=== PATIENT | female | born 1985 | race Caucasian/White ===

== ENCOUNTER 2018-04-01 02:26 | Emergency (ER) | payer MEDICAID, SELFPAY ==
[2018-04-01 02:36] VITALS: BP 107/78; PULSE 100; RESP 16; TEMP 37.3; O2SAT 96
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
[2018-04-01] MEDS: Acetaminophen 500 MG TAB 1000 MG PO (03:55)
[2018-04-01 05:10] VITALS: BP 94/67; PULSE 78; RESP 16; O2SAT 93
== END 2018-04-01 05:25 | disposition home or self-care (01) ==
PROVIDERS: Emergency Provider Emergency Medicine; PCP Family Medicine
DX: S10.91XA Abrasion of unspecified part of neck, initial encounter (principal); S90.811A Abrasion, right foot, initial encounter; S30.810A Abrasion of lower back and pelvis, initial encounter; R51 Headache; R07.81 Pleurodynia; M25.551 Pain in right hip; Y04.8XXA Assault by other bodily force, initial encounter
CPT/HCPCS: 99285; 70450; 71046; 72170; 99284

== ENCOUNTER 2019-04-04 01:08 | Outpatient (CLI) | payer MEDICAID, SELFPAY ==
--- NOTE | 2019-04-04 08:30 | DI.MRI_ITS ---
EXAM: MR BRAIN WO CLINICAL HISTORY: VISUAL CHANGES, H53.9. TECHNIQUE: Multiplanar multisequence MRI was performed. COMPARISON: No exams were available for comparison FINDINGS: MR of the brain was performed according to the usual protocol. Ventricular system is normal in appea constanza. No signal abnormality identified in the brain. The orbital and temporal bone structures appe ar intact. There is unremarkable appearance of the pituitary. There is normal flow void in the circ [id number] vasculature. Diffusion-weighted imaging shows no evidence of infarction. Susceptibilit y weighted imaging shows no evidence of hemorrhage. IMPRESSION: Negative brain MRI.
== END 2019-04-04 01:28 ==
PROVIDERS: PCP Family Medicine; Visit Provider Family Medicine
DX: H53.9 Unspecified visual disturbance (principal)
CPT/HCPCS: 70551

== ENCOUNTER 2020-01-12 02:16 | Outpatient (CLI) | payer MEDICAID, SELFPAY | END 2020-01-12 02:36 | PROVIDERS: PCP Family Medicine; Visit Provider Family Medicine | DX: R55 Syncope and collapse (principal) | CPT/HCPCS: 93225 ==

== ENCOUNTER 2020-01-12 02:16 | Outpatient (CLI) | payer MEDICAID, SELFPAY ==
--- NOTE | 2020-01-12 13:15 | RT.EKG_ITS ---
APPROVED REPORT Exam: Resting ECG Patient Location: O HR:64 bpm ECG Measurements Heart Rate 64 AXIS NE 141 P 81 QRSd 77 QRS 73 QT 398 T 69 QTc 410 <Conclusion> Sinus rhythm...normal P axis, V-rate 60- 99 Right atrial enlargement...P>0.25mV 2 lds or<-0.24mV aVR/aVL
== END 2020-01-12 02:36 ==
PROVIDERS: PCP Family Medicine; Visit Provider Family Medicine
DX: R55 Syncope and collapse (principal)
CPT/HCPCS: 93005; 93010

== ENCOUNTER 2020-01-16 09:06 | Outpatient (CLI) | payer MEDICAID, SELFPAY ==
--- NOTE | 2020-01-16 09:36 | W.HOLTRPT ---
Date of service: 01/16/20 Time of Service: 09:36 Holter Monitor Report Referring Provider:: Ayla Villa Indications:: syncope Holter Monitor Note: This is a Holter monitor reportedly performed for the indication of syncope. Patient was monitored for 1 day and 3 hours. Rhythm throughout was sinus. Average heart rate was 77 and minimum 57. Maximum heart rate was 112 bpm There were no ventricular or supraventricular dysrhythmias There was no bradycardia There were no pauses
== END 2020-01-16 09:26 ==
PROVIDERS: PCP Family Medicine; Visit Provider Family Medicine
DX: R55 Syncope and collapse (principal)
CPT/HCPCS: 93226

== ENCOUNTER 2020-02-03 15:58 | Emergency (ER) | payer MEDICAID, SELFPAY ==
[2020-02-03 16:03] VITALS: BP 122/82; PULSE 93; RESP 14; TEMP 37.2; O2SAT 97
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
== END 2020-02-03 16:24 | disposition home or self-care (01) ==
PROVIDERS: Emergency Provider Emergency Medicine; PCP Family Medicine
DX: S02.5XXA Fracture of tooth (traumatic), initial encounter for closed fracture (principal); X58.XXXA Exposure to other specified factors, initial encounter; R22.0 Localized swelling, mass and lump, head; K04.7 Periapical abscess without sinus
CPT/HCPCS: 99283

== ENCOUNTER 2020-02-24 15:13 | Emergency (ER) | payer MEDICAID, SELFPAY ==
[2020-02-24 15:28] VITALS: BP 104/70; PULSE 71; RESP 18; TEMP 36.8; O2SAT 96
--- NOTE | 2020-02-24 16:30 | DI.RAD_ITS ---
EXAM: XR SHOULDER LT COMPLETE 2+V CLINICAL HISTORY: Fall. TECHNIQUE: 2D digital imaging was performed. COMPARISON: No exams were available for comparison FINDINGS: BONES: No acute fracture is present. No bony destructive lesion is seen. JOINTS: No dislocation present. No widening of the AC joint. SOFT TISSUE: Normal. No evidence of pneumothorax. Visualized portions of the lungs are clear. IMPRESSION: Unremarkable radiographs of the left shoulder. DATA REPOSITORY: RADIATION DOSE DELIVERED:
--- NOTE | 2020-02-24 16:30 | DI.RAD_ITS ---
EXAM: XR KNEE LT 3V AP,LAT,SHILPA CLINICAL HISTORY: fall. TECHNIQUE: 2D digital imaging was performed. COMPARISON: No exams were available for comparison FINDINGS: BONES: No acute fracture is present. No bony destructive lesion is seen. JOINTS: The knee is normally aligned. No joint effusion is seen. SOFT TISSUE: Normal. IMPRESSION: Normal radiographs of the left knee. DATA REPOSITORY: RADIATION DOSE DELIVERED:
--- NOTE | 2020-02-24 16:33 | ED.GENADUL_ITS ---
Discharge Plan Disposition Patient Disposition: HOME Condition: Stable Discharge Details Chief Complaint: Orthopedic Clinical Impression: Multiple falls Primary Care Provider: Ayla Farrell ED Provider: [place] Camacho Home Meds and New Rx's Prescriptions: Continued ibuprofen 600 MG tablet 600 mg PO Q6H PRN PRN (Reason: Abdominal Pain) Qty: 45 RF: 1 gabapentin 400 mg capsule 400 mg PO DAILY RF: 0 nitrofurantoin monohyd/m-cryst 100 mg capsule 100 mg PO BID RF: 0 acetaminophen-codeine 300-30 mg tablet 1 tab PO TID PRNQty: 9 RF: 0 amoxicillin-pot clavulanate [Augmentin] 875-125 mg tablet 1 tab PO BID Qty: 14 RF: 0 montelukast [Singulair] 10 MG tablet 10 mg PO HS RF: 0 sertraline 100 MG tablet 200 mg PO DAILY Qty: 14 RF: 0 lithium carbonate 450 MG tablet extended release 450 mg PO .AFTERNOON RF: 0 ferrous sulfate [iron] 325 MG tablet 325 mg PO DAILY RF: 0 dextroamphetamine-amphetamine [Adderall] 20 mg Tablet 20 mg PO BID RF: 0 Discharge Instructions Instructions: Syncope (ED), Fall Prevention (ED) Additional Instructions: Follow up with primary care provider in 3-5 days. Return to ED sooner if any worsening or concerns. Increase oral fluids. Please take Tylenol or Ibuprofen with food every 4-6 hours as needed for pain and swelling. Referrals: Ayla Farrell MD [Primary Care Provider] - Discharge Data Discharge Date/Time-TO BE ENTERED AT DEPARTURE: 02/24/20 18:09 Medical Decision Making 34-year-old female presents to the ER with a chief complaint of left side body pain status post mechanical fall and syncope. Patient states yesterday she was carrying some skis and turned around and woke up on the ground with a presumed syncopal episode. Was nauseous at that time. And she reports that last night she was outside looking for her cat when she fell down an embankment where she rolled. She was able to stop her fall by grabbing onto some furniture with her left arm. She is complaining of left shoulder pain, left elbow pain, left knee pain. She denies any fever, vomiting, diarrhea, problems urinating.. She has a similar episode back in November and December of syncope where she did get a Holter monitor placed. She has a past medical history of ADHD, asthma, bipolar 1, GERD. Surgical history includes appendectomy , hysterectomy, tonsillectomy. Imaging protocol: XR Left elbow. Views: 3 or more views. COMPARISON: No relevant prior studies available. FINDINGS: Bones/joints: Unremarkable. Soft tissues: Unremarkable. IMPRESSION: No evidence for acute bony injury. If clinical symptoms persist recommend followup film in 7-10 days. Thank you for allowing us to participate in the care of your patient. Dictated and Authenticated by: Елена Chang MD Imaging protocol: XR Left knee. Views: 3 views. COMPARISON: No relevant prior studies available. FINDINGS: Bones/joints: Unremarkable. Soft tissues: Unremarkable. IMPRESSION: No evidence for acute bony injury. If clinical symptoms persist recommend followup film in 7-10 days. Imaging protocol: XR Left shoulder. Views: 2 or more views. COMPARISON: No relevant prior studies available. FINDINGS: Bones/joints: Normal. Soft tissues: Unremarkable. IMPRESSION: No acute bony findings. If clinical symptoms persist recommend followup film in 7-10 days. Thank you for allowing us to participate in the care of your patient. Dictated and Authenticated by: Елена Chang MD Labs are largely within normal limits. Discussed results with patient, verbalized understanding. Plan is to discharge patient home with follow-up with PCP. HPI General Mode of arrival: ambulatory . Date/Time Provider Initiated Documentation: 02/24/20 15:34 . Limitations to Documentation: no limitations . Information obtained by: patient . HPI Narrative: 34-year-old female presents to the ER with a chief complaint of left side body pain status post mechanical fall and syncope. Patient states yesterday she was carrying some skis and turned around and woke up on the ground with a presumed syncopal episode. Was nauseous at that time. And she reports that last night she was outside looking for her cat when she fell down an embankment where she rolled. She was able to stop her fall by grabbing onto some furniture with her left arm. She is complaining of left shoulder pain, left elbow pain, left knee pain. She denies any fever, vomiting, diarrhea, problems urinating.. She has a similar episode back in November and December of syncope where she did get a Holter monitor placed. She has a past medical history of ADHD, asthma, bipolar 1, GERD. Surgical history includes appendectomy , hysterectomy, tonsillectomy. Related Data Home Medications Medication Instructions Recorded Confirmed montelukast [Singulair] 10 mg PO HS 12/02/16 02/03/20 sertraline 200 mg PO DAILY #14 12/02/16 02/03/20 lithium carbonate 450 mg PO .AFTERNOON 08/07/17 02/03/20 ibuprofen 600 mg PO Q6H PRN PRN #45 tablet 10/08/17 02/03/20 ferrous sulfate [iron] 325 mg PO DAILY 01/05/18 02/03/20 dextroamphetamine-amphetamine 20 mg PO BID 04/01/18 02/03/20 [Adderall] acetaminophen-codeine 1 tab PO TID PRN #9 tab 02/03/20 amoxicillin-pot clavulanate 1 tab PO BID #14 tab 02/03/20 [Augmentin] gabapentin 400 mg PO DAILY 02/03/20 02/03/20 nitrofurantoin monohyd/m-cryst 100 mg PO BID 02/03/20 02/03/20 Previous Rx's Medication Instructions Recorded sertraline 200 mg PO DAILY #14 12/02/16 ibuprofen 600 mg PO Q6H PRN PRN #45 tablet 10/08/17 acetaminophen-codeine 1 tab PO TID PRN #9 tab 02/03/20 amoxicillin-pot clavulanate 1 tab PO BID #14 tab 02/03/20 [Augmentin] Allergies Allergy/AdvReac Type Severity Reaction Status Date / Time valacyclovir [From Valtrex] Allergy Severe Anaphylaxsi Unverified 02/03/20 16:09 s General Stated Complaint: Orthopedic PEREZ: 3 Review of Systems Narrative: Constitutional: Negative for weight loss, alert and oriented, well groomed, normal body habitus, appears comfortable. HEENT: Denies trauma, headaches, blurry vision, nasal discharge, sore throat, trouble swallowing. Chest: Denies chest pain, palpitations, irregular rhythm, hypertension. Respiratory: Denies Shortness of breath, cough, hemoptysis. GI: Denies abdominal pain, nausea, vomiting, diarrhea, constipation. : Denies dysuria, hematuria, flank pain, rectal bleeding. Neuro: Denies dizziness, blurry vision, weakness, syncope, headache or facial numbness. Hematologic: Denies easy bruising, intolerance to heat or cold, hair loss. FORMERLY [facility] Medical History ADHD Asthma Bipolar 1 disorder, mixed GERD (gastroesophageal reflux disease) Hx of pulmonary embolus during Surgical History Appendectomy 01/2005 section (07/27/12) M. Hysterectomy, Laproscopic (10/07/17) with bilateral salpingectomy and ovarian conservation Tonsillectomy and adenoidectomy 2004 Tooth extraction 2002 Family History Mother Heart disease Mental disorder Social History Smoking/Tobacco Use Status: Current-Occasional Alcohol Intake: never Drug use: Daily Substance use type: marijuana Do you feel safe at home: Yes Do you feel safe in your relationship?: Yes Exam Narrative Exam Narrative: Constitutional: Alert and oriented x3. Appears stated age. Normal body habitus. Head: Normocephalic, no trauma. Eyes: Pupils PERRLA, Red reflex noted, EOM's intact. Eyelids symmetrical without lesions, discharge, or swelling. ENT: Bilateral TM's WNL, External ear normal to inspection, no mastoid TTP, swelling, or erythema, Nasal turbinates WNL, no nasal discharge. Normal dentition, Posterior pharynx WNL, no exudate. Chest: RRR, Normal S1, S2, distal pulses intact. Resp: Lungs clear to auscultation bilaterally, no wheezes, rales, or rhonchi. Musculoskeletal: Normal gait, 5/5 strength to all four extremities. Does have some healing abrasions noted to her left elbow. Does have some contusions and ecchymosis and abrasions noted to her left anterior knee. Pain with active range of motion to her left knee. Skin: No suspicious rashes or lesions. Capillary refill less than 2 sec. Neurologic: Cranial nerves II-XII intact. Alert and oriented x 3. DTR's intact. Hematologic/Lymphatic: No ecchymosis, no lymphadenopathy. Course Vital Signs Vital signs: Vital Signs Temperature 36.8 C 02/24/20 15:28 Pulse 71 02/24/20 15:28 Respiratory Rate 18 02/24/20 15:28 Blood Pressure 104/70 02/24/20 15:28 Pulse Oximetry 96 02/24/20 15:28 Temperature 36.8 C 02/24/20 15:28 Temperature Source Tympanic 02/24/20 15:28 Pulse 71 02/24/20 15:28 Respiratory Rate 18 02/24/20 15:28 Respiratory Effort 02/24/20 15:31 Blood Pressure 104/70 02/24/20 15:28 Pulse Oximetry 96 02/24/20 15:28 Oxygen Delivery Method Room Air 02/24/20 15:28 Oxygen Flow Rate 0 02/24/20 15:28 Pain Level 8 02/24/20 15:28
[2020-02-24 16:53] LABS: Bilirubin Negative (Negative); Blood Negative (Negative); Clarity Cloudy (Clear); Glucose Negative (Negative); Ketones Negative (Negative); Leukocyte Esterase Negative (Negative); Nitrite Negative (Negative); Specific Gravity 1.025 (1.005-1.025); Urobilinogen 0.2 EU/dL (Up TO 0.2)
[2020-02-24 16:58] LABS: Abs Immature Grans 0.01 10^3/uL (0.0-0.06); Absolute Basophil Count 0.05 10^3/uL (0.0-0.2); Absolute Eosinophil Count 0.45 10^3/uL (0.0-0.7); Absolute Neutrophil Count 3.45 10^3/uL (1.2-6.7); Basophils % 0.9; Eosinophils % 8.1; HGB 11.8 g/dL (11.2-15.7); Immature Grans % 0.2; Lymphocytes % 23.4; MCH 31.7 pg (27.0-33.0); MCHC 31.9 % (32.0-36.0); MCV 99.5 fL (80-95); MPV 10.2 fL (8.0-11.0); Monocytes % 5.4; Nucleated RBC 0 %; Platelet Count 253 10^3/uL (130-400); RBC 3.72 10^6/uL (3.93-5.22); RDW 12.8 % (11.7-14.6); RDW-SD 46.9 fL; WBC 5.56 10^3/uL (4.4-10.8)
--- NOTE | 2020-02-24 17:13 | DI.RAD_ITS ---
EXAM: XR ELBOW LT COMPLETE INDICATION: fall. COMPARISON: No exams were available for comparison TECHNIQUE: 2D digital imaging was performed. FINDINGS: No fracture or dislocation is seen. No joint effusion is visible. An IV is noted in the antecubital fossa. IMPRESSION: Negative left elbow. DATA REPOSITORY: RADIATION DOSE DELIVERED:
--- NOTE | 2020-02-24 17:21 | DI.VRAD_ITS ---
PROCEDURE INFORMATION: Exam: XR Left Shoulder Exam date and time: 02/24/2020 5:00 PM Age: 34 years old Clinical indication: Other: Fall TECHNIQUE: Imaging protocol: XR Left shoulder. Views: 2 or more views. COMPARISON: No relevant prior studies available. FINDINGS: Bones/joints: Normal. Soft tissues: Unremarkable. IMPRESSION: No acute bony findings. If clinical symptoms persist recommend followup film in 7-10 days. Dictated and Authenticated by: Елена Chang MD. Ordering:SHANTEL Lovelace MD
--- NOTE | 2020-02-24 17:22 | DI.VRAD_ITS ---
PROCEDURE INFORMATION: Exam: XR Left Elbow Exam date and time: 02/24/2020 5:07 PM Age: 34 years old Clinical indication: Other: Fall TECHNIQUE: Imaging protocol: XR Left elbow. Views: 3 or more views. COMPARISON: No relevant prior studies available. FINDINGS: Bones/joints: Unremarkable. Soft tissues: Unremarkable. IMPRESSION: No evidence for acute bony injury. If clinical symptoms persist recommend followup film in 7-10 days. Dictated and Authenticated by: Елена Chang MD. Ordering:SHANTEL Lovelace MD
--- NOTE | 2020-02-24 17:22 | DI.VRAD_ITS ---
PROCEDURE INFORMATION: Exam: XR Left Knee Exam date and time: 02/24/2020 5:02 PM Age: 34 years old Clinical indication: Other: Fall TECHNIQUE: Imaging protocol: XR Left knee. Views: 3 views. COMPARISON: No relevant prior studies available. FINDINGS: Bones/joints: Unremarkable. Soft tissues: Unremarkable. IMPRESSION: No evidence for acute bony injury. If clinical symptoms persist recommend followup film in 7-10 days. Dictated and Authenticated by: Елена Chang MD. Ordering:SHANTEL Lovelace MD
[2020-02-24 17:23] LABS: ALT 13 U/L (14-59); Albumin 3.4 g/dL (3.4-5.0); Alkaline Phosphatase 69 U/L (46-116); Anion Gap 4.6 mmol/L (3-11); BUN 16 mg/dL (7-18); Bilirubin, Total 0.4 mg/dL (0.2-1.0); CO2 27.4 mmol/L (21.0-32.0); CREATININE 0.81 mg/dL (0.55-1.02); Calcium 8.9 mg/dL (8.5-10.1); Chloride 107 mmol/L (98-107); Glucose 92 mg/dL (74-106); Potassium 4.1 mmol/L (3.5-5.1); Sodium 139 mmol/L (136-145); Total Protein 6.3 g/dL (6.4-8.2)
[2020-02-24 17:50] LABS: AST 13 U/L (15-37)
== END 2020-02-24 18:09 | disposition home or self-care (01) ==
PROVIDERS: Emergency Provider Registered Nurse Emergency; PCP Family Medicine
DX: R55 Syncope and collapse (principal); R11.0 Nausea; M25.512 Pain in left shoulder; M25.562 Pain in left knee; M25.522 Pain in left elbow; W17.81XA Fall down embankment (hill), initial encounter; R29.6 Repeated falls
CPT/HCPCS: 36415; 73562; 80053; 99284; 73030; 73080; 81003; 85025

== ENCOUNTER 2020-03-27 00:56 | Outpatient (CLI) | payer MEDICAID, SELFPAY ==
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
== END 2020-03-27 01:16 ==
PROVIDERS: PCP Family Medicine; Visit Provider Family Medicine
DX: R40.4 Transient alteration of awareness (principal); R41.3 Other amnesia
CPT/HCPCS: 70450

== ENCOUNTER 2020-05-07 10:17 | Outpatient (CLI) | payer MEDICAID, SELFPAY ==
--- NOTE | 2020-05-07 13:45 | DI.US_ITS ---
APPROVED REPORT EXAM: Comprehensive 2D, Doppler, and color-flow Echocardiogram Patient Location: Out-Patient [employer] Analyst: Giselle Archibald RDCS (AE) Indications: Syncope Other Information Study Quality: Adequate Conclusion Left ventricular wall thickness and chamber size. Estimated ejection fraction is 60%. There are no segmental wall motion abnormalities Normal right ventricular size and systolic function. Normal estimated right ventricular systolic pre ssure Both atria are normal in size There are no structural or hemodynamically significant valvular abnormalities Wall motion Left Ventricle The left ventricle is normal size. The left ventricular systolic function is normal. The left ventric ular ejection fraction is within the normal range. There is normal left ventricular wall thickness. T here is normal LV segmental wall motion. There is no ventricular septal defect visualized. LVEF is 60 %. Right Ventricle The right ventricle is normal size. The right ventricular systolic function is normal. The RVSP is 26 .9 mmHg. Atria The left atrium size is normal. The right atrium size is normal. The interatrial septum is intact wit h no evidence for an atrial septal defect. Aortic Valve The aortic valve is normal in structure. Aortic valve is trileaflet. There is no aortic valvular sten osis. No aortic regurgitation is present. Mitral Valve The mitral valve is normal in structure. No evidence of mitral valve stenosis. Trace mitral regurgita tion. Tricuspid Valve The tricuspid valve is normal in structure. There is no tricuspid valve stenosis. Trace tricuspid reg urgitation. Pulmonic Valve The pulmonary valve is normal in structure. There is no pulmonic valvular stenosis. There is no pulmo nabor valvular regurgitation. Great Vessels The aortic root is normal in size. The ascending aorta is normal in size. Aortic arch is normal in ca liber. The IVC collapses <50% with inspiration. Pericardium There is no pericardial effusion. 2D Dimensions IVSD d PLAX 0.73 cm F: 0.6-1.0 LV Vol A2C d MOD 77.7 mL LVPW d PLAX 0.72 cm F: 0.6 - 1.0 LV Vol A4C d MOD 80.1 mL LVID d PLAX 4.58 cm F: 3.8 - 5.2 LA vol/ BSA A2C s A-L 12.7 mL/m2 LVDs 3.10 cm F: 2.2 - 3.5 LA vol/ BSA A4C s A-L 21.0 mL/m2 Ao Root d 2.75 cm F: 2.7 - 3.3 LA Vol/ BSA Biplane s A-L 17.3 mL/m2 RA Area A4C 8.71 cm2 LA Area A4C s MOD 13.82 cm2 RA Vol/ BSA A4C s A-L 10.3 mL/m2 LA Area A2C s MOD 10.13 cm2 Ao Asc Diam d 2.83 cm F: 2.3 - 3.1 LV EF A4C MOD 60.6 % LV EF Teichholz 59.9 % LV EF A2C MOD 61.1 % LVEF (Robison's) 59.19 % F: 54 - 74 LV EF Biplane MOD 59.2 % LV Volume 64.72 mL F: 46 - 106 SV 47.13 mL LV Volume Index 40.70 mL/m2 F: 29 - 61 SV Index 29.49 mL/m2 LV Vol Biplane MOD 79.6 mL FS 31.75 % M-Mode TAPSE 2.22 cm (M/F) >1.7 LV Diastology MV E' medial 0.131 (>0.07 m/s) E/A Ratio 1.8 LV E/e MED 5.55 (<14) MV E Vmax 0.73 (0.4-1.3 m/s) MV E' lateral 0.200 (>0.1 m/s) MV A Vmax 0.40 (0.4-1.3 m/s) LV E/e LAT 3.60 (<14) MV E/A Ratio 1.79 MV E/E' medial 5.55 MV E/E' lateral 3.62 Aortic Valve LVOT Area 3.08 cm2 AoV Area Vmax 2.21 cm2 LVOT Vmax 1.08 m/s AoV Area/ BSA (Vmax) 1.38 cm2/m2 LVOT Mean Nolberto. 0.67 m/s BELLA Mean Nolberto. 2.10 cm2 LVOT Peak Grad 4.7 mmHg BELLA Mean Nolberto. Index 1.31 cm2/m2 LVOT Mean Grad 2.2 mmHg LVOT VTI 0.233 m LVOT Diam s 1.95 cm AoV Vmax 1.51 m/s Velocity Ratio 0.71 AoV Mean Nolberto. 0.98 m/s AoV Peak Grad 9.1 mmHg LVOT SV 71.87 mL AoV Mean Grad 4.6 mmHg AoV VTI 0.272 m AoV Area VTI 2.65 cm2 AoV Area/ BSA (VTI) 1.66 cm/m2 Mitral Valve MV DT 193 (160-240 msec) MV PHT 56 msec MV Area PHT 3.92 cm2 Pulmonary Valve PV Vmax 0.83 (0.5-1.5 m/s) RVOT Peak Gr. 2.36 mmHg PV Peak Grad 2.8 mmHg RVOT Mean Gr. 1.15 mmHg PV Mean Grad 1.5 mmHg RVOT VTI 0.162 m PV VTI 0.191 m RVOT Vmax 0.77 m/s Tricuspid Valve TR Peak Grad 18.9 mmHg TR Vmax 2.18 m/s RA Pressure 8.00 mmHg RVSP (TR) 26.9 mmHg
== END 2020-05-07 10:37 ==
PROVIDERS: PCP Family Medicine; Visit Provider Internal Medicine Cardiovascular Disease
DX: R55 Syncope and collapse (principal)
CPT/HCPCS: 93306

== ENCOUNTER 2020-12-14 04:12 | Outpatient (CLI) | payer MEDICAID, SELFPAY ==
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
== END 2020-12-14 04:32 ==
PROVIDERS: PCP Family Medicine; Visit Provider Family Medicine
DX: R10.11 Right upper quadrant pain (principal)
CPT/HCPCS: 76700

== ENCOUNTER 2021-06-14 15:57 | Emergency (ER) | payer MEDICAID, SELFPAY ==
[2021-06-14 16:04] VITALS: BP 113/80; PULSE 87; RESP 18; TEMP 37; O2SAT 98
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
[2021-06-14] MEDS: Acetaminophen 500 MG TAB PO (16:56)
[2021-06-14] MEDS: Ondansetron O.D.T. 4 MG TABEF PO (16:57)
[2021-06-14] MEDS: Cyclobenzaprine 10 MG TAB PO (16:57)
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
[2021-06-14] MEDS: Cyclobenzaprine 10 MG TAB, 3 TABS/BTL PO (18:37)
[2021-06-14] MEDS: Ondansetron O.D.T. 4 MG TABEF, 3 TABS/BTL PO (18:38)
== END 2021-06-14 18:36 | disposition home or self-care (01) ==
PROVIDERS: Emergency Provider Registered Nurse Emergency; PCP Family Medicine
DX: M54.2 Cervicalgia (principal); R51.9 Headache, unspecified; H53.8 Other visual disturbances; S30.1XXA Contusion of abdominal wall, initial encounter; R11.0 Nausea; Y04.2XXA Assault by strike against or bumped into by another person, initial encounter
CPT/HCPCS: 99284; 70450; 72125; 74176; 99283

== ENCOUNTER 2021-07-19 04:44 | Outpatient (CLI) | payer OTHER, MEDICAID, SELFPAY | END 2021-07-19 04:45 | disposition home or self-care (01) | LOC: RT 04:44 | PROVIDERS: PCP Family Medicine; Visit Provider Pediatrics Pediatric Rheumatology | DX: Z02.71 Encounter for disability determination (principal); R06.89 Other abnormalities of breathing | CPT/HCPCS: 94618 ==

== ENCOUNTER 2021-09-06 01:03 | Outpatient (CLI) | payer OTHER, MEDICAID, SELFPAY ==
[2021-09-06] MEDS: Albuterol HFA 18 GM 200 PUFF INH IH (14:57)
[2021-09-06] MEDS: Inhaler, Assist Device 1 EACH MC (14:57)
== END 2021-09-06 01:04 | disposition home or self-care (01) ==
LOC: RT 01:03
PROVIDERS: PCP Family Medicine; Visit Provider Pediatrics Pediatric Rheumatology
DX: Z02.71 Encounter for disability determination (principal); R07.89 Other chest pain; R06.09 Other forms of dyspnea; Z87.891 Personal history of nicotine dependence; R94.2 Abnormal results of pulmonary function studies
CPT/HCPCS: 94060; 94618; 94729

== ENCOUNTER 2021-11-12 17:20 | Emergency (ER) | payer MEDICAID, SELFPAY ==
[2021-11-12 17:30] VITALS: BP 116/96; PULSE 70; RESP 18; TEMP 36.6; O2SAT 99
--- NOTE | 2021-11-12 17:30 | DI.CT_ITS ---
Exam(s) CT RENAL COLIC WO EXAM: CT RENAL COLIC WO CLINICAL HISTORY: Right flank pain. TECHNIQUE: Imaging Protocol: Axial computed tomography images with coronal and sagittal reformatted images were created and reviewed. COMPARISON: CT CT ABDOMEN PELVIS WO from 06/14/2021 FINDINGS: ABDOMEN: Lung Bases: Normal where visualized. There may be a very small pericardial effusion. Liver: Normal density. No measurable mass. Gallbladder and biliary tract: No radiodense calculus or biliary ductal dilation. Pancreas: Normal density, no abnormal calcifications or inflammatory process. Spleen: Normal. Kidneys: Normal size, contour and axis.There is a 5 mm stone in the distal right ureter just proximal to the UVJ causing moderately severe hydronephrosis. There is bilateral nephrolithiasis. No eviden ce of left hydroureter. No masses seen. Adrenal glands: No mass is seen. Lymph nodes: Within normal limits. Abdominal Aorta: Abdominal portion non-dilated. Minimal atherosclerosis. PELVIS: Bladder:Not well distended but grossly unremarkable. Bowel: No obstruction or bowel wall thickening. No evidence of appendicitis. Peritoneal cavity: No ascites, collection or mesenteric inflammatory response. No free air. Reproductive organs: Status post hysterectomy. The left ovary measures 3.4 x 2.9 cm. The left ovary is larger than the right. Bones: Within normal limits. Soft Tissues: Within normal limits. IMPRESSION: 1. 5 mm distal right ureteral stone causing moderately severe hydronephrosis. 2. Bilateral nephrolithiasis. 3. Very small pericardial effusion. 4. Prominent left ovary. Pelvic ultrasound may be obtained for further evaluation. RADIATION DOSE DELIVERED: 614.29mGy.cm Total DLP DATA REPOSITORY: All CT scans at this facility are submitted to the National Radiology Data Registry (NRDR) Dose Index Registry (DIR) with the [employer] ([employer]). RADIATION OPTIMIZATION: All CT scans at this facility use at least one of these dose optimization te chniques: automated exposure control; mA and/or kV adjustment per patient size (includes targeted exa ms where dose is matched to clinical indication); or iterative reconstruction.
[2021-11-12 18:05] LABS: Abs Immature Grans 0.05 10^3/uL (0.0-0.06); Absolute Eosinophil Count 0.01 10^3/uL (0.0-0.7); Absolute Lymphocyte Count 1.01 10^3/uL (1.2-3.4); Basophils % 0.1; Eosinophils % 0.1; HCT 38.8 % (36.0-46.0); HGB 12.9 g/dL (11.2-15.7); Immature Grans % 0.4; Lymphocytes % 7.5; MCH 31.9 pg (27.0-33.0); MCHC 33.2 % (32.0-36.0); MCV 96 fL (80-95); Monocytes % 1.6; Neutrophils % 90.3; Platelet Count 316 10^3/uL (130-400); RBC 4.04 10^6/uL (3.93-5.22); RDW 11.8 % (11.7-14.6); RDW-SD 41.1 fL; WBC 13.49 10^3/uL (4.4-10.8)
[2021-11-12 18:06] LABS: Absolute Basophil Count 0.01 10^3/uL (0.0-0.2); Absolute Monocyte Count 0.22 10^3/uL (0.1-0.8); Absolute Neutrophil Count 12.18 10^3/uL (1.2-6.7); Bilirubin Negative (Negative); Blood Moderate (Negative); Clarity Clear (Clear); Glucose Negative (Negative); Ketones >=160 mg/dL (Negative); Leukocyte Esterase Negative (Negative); Nitrite Negative (Negative); Urobilinogen 0.2 EU/dL (Up TO 0.2); pH 8.5 (5-8)
[2021-11-12] MEDS: Normal Saline 1,000 ML 1000 ML IV (18:07)
[2021-11-12] MEDS: Ketorolac 30 MG/ML VIAL IVP (18:07)
[2021-11-12] MEDS: Ondansetron 4 MG/2 ML VIAL IVP (18:08)
[2021-11-12 18:20] LABS: ALT 16 U/L (14-59); AST 13 U/L (15-37); Albumin 4.1 g/dL (3.4-5.0); Alkaline Phosphatase 87 U/L (46-116); Anion Gap 11.5 mmol/L (3-11); BUN 12 mg/dL (7-18); Bilirubin, Total 0.7 mg/dL (0.2-1.0); CO2 21.5 mmol/L (21.0-32.0); Calcium 9.5 mg/dL (8.5-10.1); Chloride 104 mmol/L (98-107); Glucose 108 mg/dL (74-106); Potassium 3.4 mmol/L (3.5-5.1); Sodium 137 mmol/L (136-145); Total Protein 7.4 g/dL (6.4-8.2)
--- NOTE | 2021-11-12 18:31 | ED.GENADUL_ITS ---
Discharge Plan Disposition Patient Disposition: HOME Condition: Stable Discharge Details Clinical Impression: Hydronephrosis with urinary obstruction due to ureteral calculus Primary Care Provider: Ayla Farrell ED Provider: Kev Hull Home Meds and New Rx's Prescriptions: New diclofenac potassium 50 mg tablet 50 mg PO TID PRN (Reason: pain) Qty: 15 0RF ondansetron 4 mg tablet,disintegrating 4 mg PO Q6H PRN (Reason: nausea and vomiting) Qty: 10 0RF tamsulosin 0.4 mg capsule 0.4 mg PO QHS Qty: 14 0RF Continued clonazepam 1 mg tablet 1 mg PO TID loratadine 10 mg tablet 10 mg PO DAILY fluticasone propionate 50 mcg/actuation spray,suspension 1 spray intranasal DAILY Rx Instructions: administer into each nostril gabapentin 400 mg capsule 400 mg PO DAILY Label Comments: TAKE ONE CAPSULE BY MOUTH TWICE A DAY bupropion HCl 150 mg tablet extended release 24 hr 150 mg PO DAILY Label Comments: TAKE ONE TABLET BY MOUTH TWICE A DAY BEFORE BREAKFAST AND LUNCH montelukast [Singulair] 10 MG tablet 10 mg PO HS sertraline 100 MG tablet 200 mg PO DAILY Qty: 14 0RF lithium carbonate 450 MG tablet extended release 450 mg PO .AFTERNOON ferrous sulfate [iron] 325 MG tablet 325 mg PO DAILY dextroamphetamine-amphetamine [Adderall] 20 mg Tablet 20 mg PO BID Discontinued ibuprofen 600 MG tablet 600 mg PO Q6H PRN PRN (Reason: Abdominal Pain) Qty: 45 1RF Discharge Instructions Instructions: Kidney Stones (ED), How to Strain Your Urine (ED) Additional Instructions: If you develop fever chills, severe and persistent vomiting, or severe pain return immediately to the emergency department for reassessment. Otherwise it will be very important to drink 2 to 3 L of water daily, and take medication as prescribed. You have been placed upon a follow-up list with urology and please contact their office for arrangement of your appointment. Also follow-up with your primary care provider for reassessment of the abnormal cardiac and ovarian findings noted on CT exam that were nonemergent during today's visit Referrals: [facility] [Provider Group] - 2 weeks Ayla Farrell MD [Primary Care Provider] - 1 week (For reassessment of abnormal CT findings) Medical Decision Making Patient presenting to the emergency department for chief complaint of right flank pain. She states this is similar to previous episode of urinary tract infection but severely worse. She states chills but no fever, some nausea and vomiting secondary to pain, but denies any urinary symptoms except for urgency and difficulty to fully empty her bladder. Patient does report that she has been under significant amount of stress due to social and family situations. Patient denies any trauma. Physical exam shows right CVA tenderness and right flank tenderness otherwise exam is unremarkable. Patient has had an appendectomy hysterectomy and section. We will plan on treating patient's pain and nausea pending lab results and CT imaging for concern of renal colic. Review of labs show a mild elevation of WBCs along with neutrophils. CMP shows slight decrease in potassium, anion gap 11.5, glucose 108, AST of 13. Urine has slightly elevated pH, proteins ketones and blood present otherwise does not appear infected with negative nitrite and leukocyte and negative for bacteria. Reviewed CT imaging and there is noted a 5 mm obstructing Right UVJ stone which I feel correlates to patient's right flank pain. There were some incidental findings of minimal pericardial fluid, dilated ivc and hepatic veins along with prominent left ovary. Reassessed cardiac system along with asking patient if she had any cardiac related symptoms which she denied and no worrisome findings on exam. Recommended patient to follow-up with primary care provider for further investigation of cardiac and ovarian findings. For obstructing stone we will plan on starting patient on Flomax, providing analgesia, and Zofran. Patient will be placed upon follow-up list to follow-up with urology in 2 weeks and clearly discussed return and follow-up precautions. Due to patient's history of drug abuse will use NSAIDs for pain control which significantly alleviated patient's pain in the emergency department. Imaging Data Radiologic Study: Imaging: CT Scan Radiologist's impression: IMPRESSION: 1. 5 mm obstructing right UVJ stone (likely representing a previous right lower pole renal seen on the prior CT). 2. Interval minimal pericardial fluid. 3. Dilated IVC and hepatic veins which may be due to elevated right heart pressures. 4. Asymmetrically prominent left ovary. Correlate with pelvic ultrasound as felt clinically indicated. HPI General Mode of arrival: ambulatory . Date/Time Provider Initiated Documentation: 11/12/21 17:34 . Limitations to Documentation: no limitations . Information obtained by: patient and RN notes reviewed . History of Present Illness 36 year old F presents to the emergency department with the chief complaint of R flank pain , described as severe, with intensity rated at 10. Quality is described as sharp, and is localized to the right (flank). Patient abdomen. Patient started experiencing this hour(s) (12) and it has been constant. No relieving factors improve symptom(s), No exacerbating factors reported . Patient notes nausea/vomiting. Patient did receive the following treatments prior to arrival, none Related Data Home Medications Medication Instructions Recorded Confirmed montelukast 10 mg tablet 10 mg PO HS 12/02/16 11/12/21 (Singulair) sertraline 100 mg tablet 200 mg PO DAILY ##14 12/02/16 11/12/21 lithium carbonate 450 mg 450 mg PO .AFTERNOON 08/07/17 11/12/21 tablet,extended release ferrous sulfate 325 mg (65 mg 325 mg PO DAILY 01/05/18 11/12/21 iron) tablet (iron) dextroamphetamine-amphetamine 20 20 mg PO BID 04/01/18 11/12/21 mg tablet (Adderall) gabapentin 400 mg capsule 400 mg PO DAILY 02/03/20 11/12/21 clonazepam 1 mg tablet 1 mg PO TID 04/16/20 11/12/21 fluticasone propionate 50 1 spray intranasal DAILY 04/16/20 11/12/21 mcg/actuation nasal spray,suspension loratadine 10 mg tablet 10 mg PO DAILY 04/16/20 11/12/21 bupropion HCl 150 mg 24 hr tablet, 150 mg PO DAILY 06/14/21 11/12/21 extended release diclofenac potassium 50 mg tablet 50 mg PO TID PRN pain #15 tabs 11/12/21 ondansetron 4 mg disintegrating 4 mg PO Q6H PRN nausea and 11/12/21 tablet vomiting #10 tabs tamsulosin 0.4 mg capsule 0.4 mg PO QHS #14 caps 11/12/21 Previous Rx's Medication Instructions Recorded sertraline 100 mg tablet 200 mg PO DAILY ##14 12/02/16 diclofenac potassium 50 mg tablet 50 mg PO TID PRN pain #15 tabs 11/12/21 ondansetron 4 mg disintegrating 4 mg PO Q6H PRN nausea and 11/12/21 tablet vomiting #10 tabs tamsulosin 0.4 mg capsule 0.4 mg PO QHS #14 caps 11/12/21 Allergies Allergy/AdvReac Type Severity Reaction Status Date / Time valacyclovir [From Valtrex] Allergy Severe Anaphylaxsi Unverified 11/12/21 17:38 s General Stated Complaint: FlankPain PEREZ: 4 Review of Systems Constitutional Constitutional: Denies body ache(s), Reports chills, Denies fever(s), Denies malaise and Denies weakness Cardiovascular Cardiovascular: Denies chest pain Respiratory Respiratory: Reports system reviewed and no additional complaints, except as documented Gastrointestinal Gastrointestinal: Denies abdominal pain, Denies diarrhea, Reports nausea and Reports vomiting Genitourinary Genitourinary: Reports as per HPI, Denies hematuria, Reports difficulty voiding, Denies dysuria and Reports urinary urgency Musculoskeletal Musculoskeletal: Reports back pain Neurologic Neurologic: Denies confusion and Denies weakness Psychiatric Psychiatric: Denies confusion PFSH All Active Problems (Updated 11/12/21 @ 19:26 by Kev Hull NP) Hydronephrosis with urinary obstruction due to ureteral calculus (Acute) Syncope and collapse (Acute) Medical History ADHD Asthma Bipolar 1 disorder, mixed GERD (gastroesophageal reflux disease) Hx of pulmonary embolus during Surgical History Appendectomy 01/2005 section (07/27/12) M. Hysterectomy, Laproscopic (10/07/17) with bilateral salpingectomy and ovarian conservation Tonsillectomy and adenoidectomy 2004 Tooth extraction 2002 Family History Mother Heart disease Mental disorder Social History Smoking/Tobacco Use Status: Former Tobacco Use Smoking risk assessment performed?: Yes Alcohol Intake: never Drug use: Daily Substance use type: marijuana Do you feel safe at home: Yes Do you feel safe in your relationship?: Yes Exam Const General: cooperative, in distress moderate and disheveled Orientation: alert, awake and oriented x3 Resp Effort & Inspection: normal respiratory effort and able to speak in complete sentences Auscultation: clear to auscultation bilaterally Cardio Rate: regular rate Rhythm: regular rhythm Heart Sounds: S1 normal and S2 normal GI Palpation: nontender Back/Spine/Pelvis Back: CVA tenderness (right) Neuro General: patient alert, patient awake and patient oriented x3 Extrem General: capillary refill normal Course Vital Signs Vital signs: Vital Signs Temperature 36.6 C 11/12/21 17:30 Pulse 70 11/12/21 17:30 Respiratory Rate 18 11/12/21 17:30 Blood Pressure 116/96 H 11/12/21 17:30 Pulse Oximetry 99 11/12/21 17:30 Temperature 36.6 C 11/12/21 17:30 Temperature Source Tympanic 11/12/21 17:30 Pulse 70 11/12/21 17:30 Respiratory Rate 18 11/12/21 17:30 Respiratory Effort 11/12/21 17:33 Blood Pressure 116/96 H 11/12/21 17:30 Blood Pressure Position Sitting 11/12/21 17:30 Pulse Oximetry 99 11/12/21 17:30 Oxygen Delivery Method Room Air 11/12/21 17:30 Oxygen Flow Rate 0 11/12/21 17:30 Pain Level 10 11/12/21 17:30 Lab/Test Results Lab/Test Results: Laboratory Tests Range/Units 11/12/21 11/12/21 17:45 17:45 WBC (4.4-10.8) 10^3/uL 13.49 H RBC (3.93-5.22) 10^6/uL 4.04 Hgb (11.2-15.7) g/dL 12.9 Hct (36.0-46.0) % 38.8 MCV (80-95) fL 96 H MCH (27.0-33.0) pg 31.9 MCHC (32.0-36.0) % 33.2 RDW (11.7-14.6) % 11.8 Plt Count (130-400) 10^3/uL 316 MPV (8.0-11.0) fL 10.0 Immature Gran % 0.4 Neutrophils % 90.3 Lymphocytes % 7.5 Monocytes % 1.6 Eosinophils % 0.1 Basophils % 0.1 Nucleated RBC % (0.0-0.3) % 0.0 Absolute Neutrophils (1.2-6.7) 10^3/uL 12.18 H Absolute Lymphocytes (1.2-3.4) 10^3/uL 1.01 L Absolute Monocytes (0.1-0.8) 10^3/uL 0.22 Absolute Eosinophils (0.0-0.7) 10^3/uL 0.01 Absolute Basophils (0.0-0.2) 10^3/uL 0.01 Sodium (136-145) mmol/L 137 Potassium (3.5-5.1) mmol/L 3.4 L Chloride (98-107) mmol/L 104 Carbon Dioxide (21.0-32.0) mmol/L 21.5 Anion Gap (3-11) mmol/L 11.5 H BUN (7-18) mg/dL 12 Creatinine (0.55-1.02) mg/dL 1.0 Estimated GFR/1.73 m2 (mL/min/1.73m2) >= 60.00 Glucose (74-106) mg/dL 108 H Calcium (8.5-10.1) mg/dL 9.5 Total Bilirubin (0.2-1.0) mg/dL 0.7 AST (15-37) U/L 13 L ALT (14-59) U/L 16 Alkaline Phosphatase (46-116) U/L 87 Total Protein (6.4-8.2) g/dL 7.4 Albumin (3.4-5.0) g/dL 4.1 POC- Test(urine) Negative
[2021-11-12 18:42] LABS: Bacteria Negative HPF (Negative); C & S Indicated? Yes; Casts Negative LPF (Negative); Crystals Negative HPF (Negative); Epithelial Cells Rare HPF (Negative); Mucus Negative (Negative); Other Cells Negative (Negative)
--- NOTE | 2021-11-12 19:03 | DI.VRAD_ITS ---
PROCEDURE INFORMATION: Exam: CT Abdomen And Pelvis Without Contrast Exam date and time: 11/12/2021 6:04 PM Age: 36 years old Clinical indication: Other: Right flank pain TECHNIQUE: Imaging protocol: Computed tomography of the abdomen and pelvis without contrast. Total images: 0 Radiation optimization: All CT scans at this facility use at least one of these dose optimization techniques: automated exposure control; mA and/or kV adjustment per patient size (includes targeted exams where dose is matched to clinical indication); or iterative reconstruction. COMPARISON: CT ABDOMEN PELVIS WO 06/14/2021 5:30 PM FINDINGS: Lungs: Lung bases are unremarkable. Heart: Interval small amount of pericardial fluid. Liver: No focal mass. Gallbladder and bile ducts: No calcified stones. No definite gallbladder wall thickening or biliary dilatation. Pancreas: No mass or peripancreatic edema. Spleen: No splenomegaly. Adrenal glands: No adrenal nodule. Kidneys and ureters: Solitary residual 1 mm medullary stone within the right lower pole. Right kidney is enlarged and associated with a moderate amount perinephric stranding and fluid. Moderate right hydroureteral nephrosis can be followed to a 5 mm calcified stone at the right ureteral vesicle junction. Again noted are a few tiny left renal medullary calculi. No left ureteral calculi. Stomach and bowel: Stomach is grossly unremarkable. No small or large bowel dilatation. No definite bowel wall thickening. Appendix: No evidence of appendicitis. Intraperitoneal space: No free air or free fluid. Vasculature: Dilatation of the intrahepatic IVC and hepatic veins. Lymph nodes: No significant adenopathy. Urinary bladder: No bladder stone. No definite bladder wall thickening. Reproductive: Status post hysterectomy. Asymmetric prominence to the left ovary measuring up to 3.4 cm. Bones/joints: No significant bony or joint space abnormality. Soft tissues: Extra-abdominal soft tissues are unremarkable. IMPRESSION: 1. 5 mm obstructing right UVJ stone (likely representing a previous right lower pole renal seen on the prior CT). 2. Interval minimal pericardial fluid. 3. Dilated IVC and hepatic veins which may be due to elevated right heart pressures. 4. Asymmetrically prominent left ovary. Correlate with pelvic ultrasound as felt clinically indicated. Dictated and Authenticated by: Azar Gracia MD. Ordering:SALOME Angulo MD
[2021-11-12 19:17] VITALS: BP 127/86; PULSE 65; RESP 14; O2SAT 99
[2021-11-12] MEDS: Tamsulosin 0.4 MG CAPCR PO (20:00)
[2021-11-12] MEDS: Ondansetron O.D.T. 4 MG TABEF, 3 TABS/BTL PO (20:00)
[2021-11-12 20:06] VITALS: BP 127/86; PULSE 65; RESP 14; TEMP 37.2; O2SAT 99
== END 2021-11-12 20:06 | disposition home or self-care (01) ==
PROVIDERS: Emergency Provider Nurse Practitioner Family; PCP Family Medicine
DX: N13.2 Hydronephrosis with renal and ureteral calculous obstruction (principal)
CPT/HCPCS: 36415; 80053; 81025; 96361; 96374; 96375; 99284; 74176; 81003; 81015; 85025; 87086; J1885; J2405

== ENCOUNTER 2022-04-18 15:31 | Outpatient (REF) | payer MEDICAID, SELFPAY ==
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
--- OUTSIDE RECORDS SUMMARY | 2022-04-18 15:33 | XMS_ITS ---
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 VENIPUNCTURE IH Jul 01, 2017 PNEUMOCOCCAL VACCINE (23) Adult November 30, 2015 IMMUNIZATION ADMIN August 20, 2018 SCR PAP SMER; OBTAIN PREP&CONVY-LAB September 28, 2015 Associate Phone Consultation December 03, 2016 URINE-NO MICRO (Urine Dip Stick) May 21, 2016 VENIPUNCTURE IH August 20, 2018 URINE-NO MICRO (Urine Dip Stick) Jul 01, 2017 URINE-NO MICRO (Urine Dip Stick) Mar 20, 2020 URINE-NO MICRO (Urine Dip Stick) Feb 29, 2020 COLPSCOPY WITH BIOPSY AND ECC 2015-11-01 N/A SCR PAP SMER; OBTAIN PREP&CONVY-LAB October 14, 2016 CAPILLARY BLOOD DRAW November 11, 2016 SPECIMEN HANDLING January 09, 2021 Associate Phone Consultation Feb 28, 2020 Associate Phone Consultation Apr 01, 2018 IMMUNIZATION ADMIN November 30, 2015 Associate Phone Consultation Feb 06, 2020 Associate Phone Consultation Apr 02, 2021 SPECIMEN HANDLING January 20, 2020 Associate Phone Consultation January 20, 2020 SPECIMEN HANDLING Apr 01, 2022 SCR PAP SMER; OBTAIN PREP&CONVY-LAB Apr 08, 2016 Associate Phone Consultation November 14, 2021 Associate Phone Consultation October 09, 2017 Associate Phone Consultation November 14, 2021 Associate Face to Face visit December 29, 2017 Associate Phone Consultation Jun 17, 2021 Associate Phone Consultation January 06, 2018 Associate Phone Consultation Apr 03, 2020 Associate Phone Consultation January 13, 2018 SPECIMEN HANDLING Feb 29, 2020 COLPOSCOPY W/ BX and ECC November 07, 2016 Associate Phone Consultation Aug 12, 2017 RESULTS Name Result Date Reference Range CMP 2021-10-02 GLUCOSE 98 65-139 UREA NITROGEN (BUN) 18 7-25 CREATININE 0.85 0.50-1.10 SODIUM 136 135-146 POTASSIUM 4.5 3.5-5.3 CHLORIDE 100 98-110 CALCIUM 10.2 8.6-10.2 PROTEIN, TOTAL 7.5 6.1-8.1 ALBUMIN 4.6 3.6-5.1 GLOBULIN 2.9 1.9-3.7 ALBUMIN/GLOBULIN RATIO 1.6 1.0-2.5 BILIRUBIN, TOTAL 0.5 0.2-1.2 ALKALINE PHOSPHATASE 90 31-125 AST 16 10-30 ALT 12 6-29 eGFR NON-AFR. EQUATORIAL GUINEAN 88 > OR = 60 eGFR 101 > OR = 60 CARBON DIOXIDE 30 20-32 GLOBULIN 2.9 1.9-3.7 BUN/CREATININE RATIO NOT APPLICABLE 6-22 IRON TOTAL IRON BINDING CAPACITY AND 2021-10-02 FERRITIN PANEL IRON, TOTAL 79 40-190 IRON BINDING CAPACITY 313 250-450 % SATURATION 25 16-45 FERRITIN 42 16-154 CBC WITH DIFF 2021-10-02 HEMOGLOBIN 13.6 11.7-15.5 HEMATOCRIT 40.3 35.0-45.0 MCH 32.4 27.0-33.0 MCHC 33.7 32.0-36.0 RDW 11.3 11.0-15.0 NEUTROPHILS 64.2 ABSOLUTE NEUTROPHILS [phone] LYMPHOCYTES 29.9 ABSOLUTE LYMPHOCYTES 2512 850-3900 MONOCYTES 4.0 ABSOLUTE MONOCYTES 336 200-950 EOSINOPHILS 1.4 ABSOLUTE EOSINOPHILS 118 15-500 BASOPHILS 0.5 ABSOLUTE BASOPHILS 42 0-200 MPV 9.8 7.5-12.5 WHITE BLOOD CELL COUNT 8.4 3.8-10.8 RED BLOOD CELL COUNT 4.20 3.80-5.10 MCV 96.0 80.0-100.0 PLATELET COUNT 427 140-400 URINE CULTURE ROUTINE 2021-08-28 CULTURE, URINE, ROUTINE SEE NOTE CBC WITH DIFF 2021-08-28 HEMOGLOBIN 12.9 11.7-15.5 HEMATOCRIT 39.7 35.0-45.0 MCH 32.3 27.0-33.0 MCHC 32.5 32.0-36.0 RDW 11.6 11.0-15.0 NEUTROPHILS 65.1 ABSOLUTE NEUTROPHILS 5534 2555-1091 LYMPHOCYTES 25.9 ABSOLUTE LYMPHOCYTES 2202 850-3900 MONOCYTES 4.2 ABSOLUTE MONOCYTES 357 200-950 EOSINOPHILS 4.2 ABSOLUTE EOSINOPHILS 357 15-500 BASOPHILS 0.6 ABSOLUTE BASOPHILS 51 0-200 MPV 10.5 7.5-12.5 WHITE BLOOD CELL COUNT 8.5 3.8-10.8 RED BLOOD CELL COUNT 4.00 3.80-5.10 MCV 99.3 80.0-100.0 PLATELET COUNT 338 140-400 DRUG MONITOR, PANEL 1, W/CONF, W/DL, 2021-08-28 URINE Amphetamines NEGATIVE <500 Barbiturates NEGATIVE <300 Benzodiazepines POSITIVE <100 Alphahydroxyalprazolam NEGATIVE <25 Alphahydroxymidazolam NEGATIVE <50 Alphahydroxytriazolam NEGATIVE <50 Aminoclonazepam 841 <25 Hydroxyethylflurazepam NEGATIVE <50 Lorazepam NEGATIVE <50 Nordiazepam NEGATIVE <50 Oxazepam NEGATIVE <50 Temazepam NEGATIVE <50 Benzodiazepines Comments Cocaine Metabolite NEGATIVE <150 Marijuana Metabolite POSITIVE <20 Methadone Metabolite NEGATIVE <100 Opiates NEGATIVE <100 Oxycodone NEGATIVE <100 Phencyclidine NEGATIVE <25 Creatinine 63.8 > or = 20.0 pH 7.2 4.5-9.0 Oxidant NEGATIVE <200 Marijuana Metabolite 882 <5 Marijuana Comments DRUG MONITORING TEMPLATE 2021-08-28 Notes and Comments [facility] 2021-05-01 GLUCOSE 81 65-139 UREA NITROGEN (BUN) 12 7-25 CREATININE 0.71 0.50-1.10 SODIUM 139 135-146 POTASSIUM 4.0 3.5-5.3 CHLORIDE 105 98-110 CALCIUM 9.3 8.6-10.2 PROTEIN, TOTAL 6.7 6.1-8.1 ALBUMIN 4.2 3.6-5.1 GLOBULIN 2.5 1.9-3.7 ALBUMIN/GLOBULIN RATIO 1.7 1.0-2.5 BILIRUBIN, TOTAL 0.3 0.2-1.2 ALKALINE PHOSPHATASE 62 31-125 AST 12 10-30 ALT 9 6-29 eGFR NON-AFR. EQUATORIAL GUINEAN 110 > OR = 60 eGFR 127 > OR = 60 CARBON DIOXIDE 25 20-32 GLOBULIN 2.5 1.9-3.7 BUN/CREATININE RATIO NOT APPLICABLE 6-22 IRON TOTAL IRON BINDING CAPACITY AND 2021-05-01 FERRITIN PANEL IRON, TOTAL 59 40-190 IRON BINDING CAPACITY 286 250-450 % SATURATION 21 16-45 FERRITIN 55 16-154 CBC WITH DIFF 2021-05-01 HEMOGLOBIN 13.0 11.7-15.5 HEMATOCRIT 39.3 35.0-45.0 MCH 32.3 27.0-33.0 MCHC 33.1 32.0-36.0 RDW 11.4 11.0-15.0 NEUTROPHILS 57.2 ABSOLUTE NEUTROPHILS 4004 2456-8581 LYMPHOCYTES 33.5 ABSOLUTE LYMPHOCYTES 2345 850-3900 MONOCYTES 4.3 ABSOLUTE MONOCYTES 301 200-950 EOSINOPHILS 4.3 ABSOLUTE EOSINOPHILS 301 15-500 BASOPHILS 0.7 ABSOLUTE BASOPHILS 49 0-200 MPV 11.0 7.5-12.5 WHITE BLOOD CELL COUNT 7.0 3.8-10.8 RED BLOOD CELL COUNT 4.02 3.80-5.10 MCV 97.8 80.0-100.0 PLATELET COUNT 300 140-400 CMP 2021-03-12 GLUCOSE 54 65-139 UREA NITROGEN (BUN) 12 7-25 CREATININE 0.87 0.50-1.10 SODIUM 136 135-146 POTASSIUM 4.2 3.5-5.3 CHLORIDE 103 98-110 CALCIUM 10.6 8.6-10.2 PROTEIN, TOTAL 7.7 6.1-8.1 ALBUMIN 4.8 3.6-5.1 GLOBULIN 2.9 1.9-3.7 ALBUMIN/GLOBULIN RATIO 1.7 1.0-2.5 BILIRUBIN, TOTAL 0.5 0.2-1.2 ALKALINE PHOSPHATASE 71 31-125 AST 13 10-30 ALT 12 6-29 eGFR NON-AFR. EQUATORIAL GUINEAN 86 > OR = 60 eGFR 99 > OR = 60 CARBON DIOXIDE 27 20-32 GLOBULIN 2.9 1.9-3.7 BUN/CREATININE RATIO NOT APPLICABLE 12-11 LIPID PANEL WITH REFLEX TO DIRECT 2021-03-12 LDL TRIGLYCERIDES 106 <150 CHOLESTEROL, TOTAL 197 <200 HDL CHOLESTEROL 51 > OR = 50 LDL-CHOLESTEROL 125 CHOL/HDLC RATIO 3.9 <5.0 NON HDL CHOLESTEROL 146 <130 TSH WITH REFLEX 2021-03-12 TSH W/REFLEX TO FT4 1.48 HGA1C SEND OUT 2021-03-12 HEMOGLOBIN A1c 4.8 <5.7 IRON TOTAL IRON BINDING CAPACITY AND 2021-03-12 FERRITIN PANEL IRON, TOTAL 99 40-190 IRON BINDING CAPACITY 306 250-450 % SATURATION 32 16-45 FERRITIN 64 16-154 CBC WITH DIFF 2021-03-12 HEMOGLOBIN 14.4 11.7-15.5 HEMATOCRIT 43.6 35.0-45.0 MCH 32.5 27.0-33.0 MCHC 33.0 32.0-36.0 RDW 11.7 11.0-15.0 NEUTROPHILS 64.9 ABSOLUTE NEUTROPHILS 5581 8597-0633 LYMPHOCYTES 28.0 ABSOLUTE LYMPHOCYTES 2408 850-3900 MONOCYTES 4.0 ABSOLUTE MONOCYTES 344 200-950 EOSINOPHILS 2.6 ABSOLUTE EOSINOPHILS 224 15-500 BASOPHILS 0.5 ABSOLUTE BASOPHILS 43 0-200 MPV 9.9 7.5-12.5 WHITE BLOOD CELL COUNT 8.6 3.8-10.8 RED BLOOD CELL COUNT 4.43 3.80-5.10 MCV 98.4 80.0-100.0 PLATELET COUNT 384 140-400 VITAMIN B12 AND FOLATE SERUM PANEL 2021-03-12 FOLATE, SERUM 5.4 VITAMIN B12 099 177-7204 LITHIUM 2021-03-12 LITHIUM 0.9 0.6-1.2 URINE DIP IH Microscopic Examination Urine-Color Dark Yellow Appearance Cloudy Specific [place] 1.015 pH 8.0 Glucose Neg Protein Trace Occult Blood Neg Bilirubin Neg Urobilinogen,Semi-Qn Normal Nitrite, Urine + Ketones Trace Leukocyte esterase Moderate HCG Urinalysis Gross Exam URINE CULTURE ROUTINE 2021-01-09 CULTURE, URINE, ROUTINE SEE NOTE Ultrasound Right Upper Quadrant 2020-12-14 CMP 2020-11-14 GLUCOSE 64 65-139 UREA NITROGEN (BUN) 11 7-25 CREATININE 0.80 0.50-1.10 SODIUM 139 135-146 POTASSIUM 4.1 3.5-5.3 CHLORIDE 106 98-110 CALCIUM 9.8 8.6-10.2 PROTEIN, TOTAL 6.6 6.1-8.1 ALBUMIN 4.2 3.6-5.1 GLOBULIN 2.4 1.9-3.7 ALBUMIN/GLOBULIN RATIO 1.8 1.0-2.5 BILIRUBIN, TOTAL 0.5 0.2-1.2 ALKALINE PHOSPHATASE 65 31-125 AST 20 10-30 ALT 10 6-29 eGFR NON-AFR. EQUATORIAL GUINEAN 95 > OR = 60 eGFR 110 > OR = 60 CARBON DIOXIDE 27 20-32 GLOBULIN 2.4 1.9-3.7 BUN/CREATININE RATIO NOT APPLICABLE 6-22 TSH WITH REFLEX 2020-11-14 TSH W/REFLEX TO FT4 1.14 COPPER 2020-11-14 COPPER 118 70-175 HGA1C SEND OUT 2020-11-14 HEMOGLOBIN A1c 4.6 <5.7 IRON TOTAL IRON BINDING CAPACITY AND 2020-11-14 FERRITIN PANEL IRON, TOTAL 120 40-190 IRON BINDING CAPACITY 247 250-450 % SATURATION 49 16-45 FERRITIN 68 16-154 CBC WITH DIFF 2020-11-14 HEMOGLOBIN 12.8 11.7-15.5 HEMATOCRIT 37.5 35.0-45.0 MCH 32.5 27.0-33.0 MCHC 34.1 32.0-36.0 RDW 11.6 11.0-15.0 NEUTROPHILS 65 ABSOLUTE NEUTROPHILS 3705 6640-3693 LYMPHOCYTES 26.4 ABSOLUTE LYMPHOCYTES 7863 291-2696 MONOCYTES 4.9 ABSOLUTE MONOCYTES 279 200-950 EOSINOPHILS 3.2 ABSOLUTE EOSINOPHILS 182 15-500 BASOPHILS 0.5 ABSOLUTE BASOPHILS 29 0-200 MPV 10.7 7.5-12.5 WHITE BLOOD CELL COUNT 5.7 3.8-10.8 RED BLOOD CELL COUNT 3.94 3.80-5.10 MCV 95.2 80.0-100.0 PLATELET COUNT 267 140-400 VITAMIN D 25 OH TOTAL IA 2020-11-14 VITAMIN D,25-OH,TOTAL,IA 29 30-100 CMP 2020-08-15 GLUCOSE 88 65-139 UREA NITROGEN (BUN) 13 7-25 CREATININE 0.79 0.50-1.10 SODIUM 137 135-146 POTASSIUM 4.1 3.5-5.3 CHLORIDE 104 98-110 CALCIUM 9.6 8.6-10.2 PROTEIN, TOTAL 6.3 6.1-8.1 ALBUMIN 4.3 3.6-5.1 GLOBULIN 2.0 1.9-3.7 ALBUMIN/GLOBULIN RATIO 2.2 1.0-2.5 BILIRUBIN, TOTAL 0.2 0.2-1.2 ALKALINE PHOSPHATASE 78 31-125 AST 15 10-30 ALT 7 6-29 eGFR NON-AFR. EQUATORIAL GUINEAN 97 > OR = 60 eGFR 112 > OR = 60 CARBON DIOXIDE 30 20-32 GLOBULIN 2.0 1.9-3.7 BUN/CREATININE RATIO NOT APPLICABLE 6-22 IRON TOTAL IRON BINDING CAPACITY AND 2020-08-15 FERRITIN PANEL IRON, TOTAL 79 40-190 IRON BINDING CAPACITY 244 250-450 % SATURATION 32 16-45 FERRITIN 56 16-154 CBC WITH DIFF 2020-08-15 HEMOGLOBIN 12.9 11.7-15.5 HEMATOCRIT 38.3 35.0-45.0 MCH 33.1 27.0-33.0 MCHC 33.7 32.0-36.0 RDW 11.7 11.0-15.0 NEUTROPHILS 48.6 ABSOLUTE NEUTROPHILS 3110 8252-3559 LYMPHOCYTES 40.0 ABSOLUTE LYMPHOCYTES 2560 850-3900 MONOCYTES 6.4 ABSOLUTE MONOCYTES 410 200-950 EOSINOPHILS 4.2 ABSOLUTE EOSINOPHILS 269 15-500 BASOPHILS 0.8 ABSOLUTE BASOPHILS 51 0-200 MPV 10.0 7.5-12.5 WHITE BLOOD CELL COUNT 6.4 3.8-10.8 RED BLOOD CELL COUNT 3.90 3.80-5.10 MCV 98.2 80.0-100.0 PLATELET COUNT 333 140-400 LITHIUM 2020-08-15 LITHIUM 0.5 0.6-1.2 URINE DIP IH 2020-03-20 Microscopic Examination Urine-Color yellow Appearance clear Specific [place] 1.010 pH 8.5 Glucose negative Protein trace Occult Blood neg Bilirubin negative Urobilinogen,Semi-Qn normal Nitrite, Urine negative Ketones negative Leukocyte esterase negative HCG Urinalysis Gross Exam CMP 2020-03-20 GLUCOSE 93 65-139 UREA NITROGEN (BUN) 14 7-25 CREATININE 0.68 0.50-1.10 SODIUM 138 135-146 POTASSIUM 4.7 3.5-5.3 CHLORIDE 106 98-110 CALCIUM 9.7 8.6-10.2 PROTEIN, TOTAL 6.3 6.1-8.1 ALBUMIN 4.1 3.6-5.1 GLOBULIN 2.2 1.9-3.7 ALBUMIN/GLOBULIN RATIO 1.9 1.0-2.5 BILIRUBIN, TOTAL 0.3 0.2-1.2 ALKALINE PHOSPHATASE 77 31-125 AST 23 10-30 ALT 20 - eGFR NON-AFR. EQUATORIAL GUINEAN 113 > OR = 60 eGFR 131 > OR = 60 CARBON DIOXIDE 27 20-32 GLOBULIN 2.2 1.9-3.7 BUN/CREATININE RATIO NOT APPLICABLE 6-22 TSH WITH REFLEX 2020-03-20 TSH W/REFLEX TO FT4 1.56 URINE CULTURE ROUTINE 2020-03-20 CULTURE, URINE, ROUTINE SEE NOTE CBC WITH DIFF 2020-03-20 HEMOGLOBIN 12.6 11.7-15.5 HEMATOCRIT 37.8 35.0-45.0 MCH 31.3 27.0-33.0 MCHC 33.3 32.0-36.0 RDW 11.8 11.0-15.0 NEUTROPHILS 51.9 ABSOLUTE NEUTROPHILS 2284 6713-4515 LYMPHOCYTES 40.5 ABSOLUTE LYMPHOCYTES [phone] MONOCYTES 5.5 ABSOLUTE MONOCYTES 242 200-950 EOSINOPHILS 1.4 ABSOLUTE EOSINOPHILS 62 15-500 BASOPHILS 0.7 ABSOLUTE BASOPHILS 31 0-200 MPV 10.4 7.5-12.5 WHITE BLOOD CELL COUNT 4.4 3.8-10.8 RED BLOOD CELL COUNT 4.02 3.80-5.10 MCV 94.0 80.0-100.0 PLATELET COUNT 249 140-400 VITAMIN B12 AND FOLATE SERUM PANEL 2020-03-20 FOLATE, SERUM 9.9 VITAMIN B12 [phone] LITHIUM 2020-03-20 [address] 0.9 0.6-1.2 CT Head Without Contrast 2020-03-27 RESULTS: NOTES: URINE DIP IH 2020-02-29 Microscopic Examination Urine-Color yellow Appearance clear Specific [place] 1.005 pH 7.5 Glucose neg Protein trace Occult Blood neg Bilirubin neg Urobilinogen,Semi-Qn 0.2 Nitrite, Urine + Ketones neg Leukocyte esterase + HCG Urinalysis Gross Exam URINE CULTURE ROUTINE 2020-02-29 CULTURE, URINE, ROUTINE SEE NOTE URINE DIP IH 2020-01-20 Microscopic Examination Urine-Color yellow Appearance cloudy Specific [place] 1.010 pH 7 Glucose neg Protein trace Occult Blood trace Bilirubin neg Urobilinogen,Semi-Qn 0.2 Nitrite, Urine + Ketones neg Leukocyte esterase trace HCG Urinalysis Gross Exam URINE CULTURE ROUTINE 2020-01-20 CULTURE, URINE, ROUTINE SEE NOTE URINALYSIS COMPLETE 2020-01-20 COLOR TNP CMP 2019-12-30 GLUCOSE 85 65-99 UREA NITROGEN (BUN) 13 7-25 CREATININE 0.73 0.50-1.10 SODIUM 138 135-146 POTASSIUM 4.5 3.5-5.3 CHLORIDE 108 98-110 CALCIUM 9.2 8.6-10.2 PROTEIN, TOTAL 6.2 6.1-8.1 ALBUMIN 4.0 3.6-5.1 GLOBULIN 2.2 1.9-3.7 ALBUMIN/GLOBULIN RATIO 1.8 1.0-2.5 BILIRUBIN, TOTAL 0.2 0.2-1.2 ALKALINE PHOSPHATASE 64 31-125 AST 13 10-30 ALT 9 6-29 eGFR NON-AFR. EQUATORIAL GUINEAN 107 > OR = 60 eGFR 124 > OR = 60 CARBON DIOXIDE 25 20-32 GLOBULIN 2.2 1.9-3.7 BUN/CREATININE RATIO NOT APPLICABLE 6-22 TSH WITH REFLEX 2019-12-30 TSH W/REFLEX TO FT4 1.28 PTH INTACT ICMA AND IONIZED CALCIUM 2019-12-30 PARATHYROID HORMONE, INTACT TNP CALCIUM 9.6 8.6-10.2 CALCIUM, IONIZED 5.2 4.8-5.6 URINE CULTURE ROUTINE 2019-12-30 CULTURE, URINE, ROUTINE SEE NOTE CBC WITH DIFF 2019-12-30 HEMOGLOBIN 12.6 11.7-15.5 HEMATOCRIT 39.0 35.0-45.0 MCH 31.3 27.0-33.0 MCHC 32.3 32.0-36.0 RDW 11.9 11.0-15.0 NEUTROPHILS 63.8 ABSOLUTE NEUTROPHILS 4402 7720-6296 LYMPHOCYTES 26.3 ABSOLUTE LYMPHOCYTES [phone] MONOCYTES 4.7 ABSOLUTE MONOCYTES 324 200-950 EOSINOPHILS 4.8 ABSOLUTE EOSINOPHILS 331 15-500 BASOPHILS 0.4 ABSOLUTE BASOPHILS 28 0-200 MPV 10.4 7.5-12.5 WHITE BLOOD CELL COUNT 6.9 3.8-10.8 RED BLOOD CELL COUNT 4.02 3.80-5.10 MCV 97.0 80.0-100.0 PLATELET COUNT 321 140-400 MICROALBUMIN RANDOM URINE WITH 2019-12-30 CREATININE CREATININE, RANDOM URINE 98 20-275 ALBUMIN, URINE 1.4 See Note: ALBUMIN/CREATININE RATIO, RANDOM 14 <30 URINE IRON AND TOTAL IRON BINDING CAPACITY 2019-12-30 % SAT IRON, TOTAL 44 40-190 IRON BINDING CAPACITY 239 250-450 % SATURATION 18 16-45 TRICHOMONAS VAGINALIS QL TMA PAP 2019-12-30 VIAL TRICHOMONAS VAGINALIS, QL TMA, PAP TNP VIAL LITHIUM 2019-12-30 LITHIUM 0.9 0.6-1.2 MAGNESIUM SERUM 2019-12-30 MAGNESIUM 2.1 1.5-2.5 URINALYSIS COMPLETE 2019-12-30 COLOR YELLOW YELLOW APPEARANCE CLOUDY CLEAR SPECIFIC GRAVITY 1.014 1.001-1.035 PH 7.5 5.0-8.0 GLUCOSE NEGATIVE NEGATIVE BILIRUBIN NEGATIVE NEGATIVE KETONES NEGATIVE NEGATIVE OCCULT BLOOD 1+ NEGATIVE PROTEIN NEGATIVE NEGATIVE NITRITE POSITIVE NEGATIVE LEUKOCYTE ESTERASE 3+ NEGATIVE WBC 0-5 < OR = 5 RBC 0-2 < OR = 2 SQUAMOUS EPITHELIAL CELLS 0-5 < OR = 5 BACTERIA MODERATE NONE SEEN HYALINE CAST NONE SEEN NONE SEEN VITAMIN D 25 OH TOTAL IA 2019-12-30 VITAMIN D,25-OH,TOTAL,IA 37 30-100 BACTERIAL VAGINOSIS/VAGINITIS PANEL 2019-12-30 AFFIRM TRICHOMONAS: NOT DETECTED NOT DETECTED GARDNERELLA: NOT DETECTED NOT DETECTED LINDSEY: NOT DETECTED NOT DETECTED COMMENT CELIAC DISEASE DIAGNOSTIC PANEL 2019-12-30 TISSUE TRANSGLUTAMINASE AB, IGG 2 TISSUE TRANSGLUTAMINASE AB, IGA 1 GLIADIN (DEAMIDATED) AB (IGA) 3 GLIADIN (DEAMIDATED) AB (IGG) 2 IMMUNOGLOBULIN A 177 47-310 Echocardiogram 2020-05-07 Ejection Fraction % Electrocardiogram ECG 2020-01-12 Results: HOLTER MONITOR 24 HOUR 2020-01-16 Result: CMP 2019-03-09 GLUCOSE 95 65-139 UREA NITROGEN (BUN) 10 7-25 CREATININE 0.72 0.50-1.10 SODIUM 140 135-146 POTASSIUM 4.6 3.5-5.3 CHLORIDE 107 98-110 CALCIUM 9.6 8.6-10.2 PROTEIN, TOTAL 6.3 6.1-8.1 ALBUMIN 4.1 3.6-5.1 GLOBULIN 2.2 1.9-3.7 ALBUMIN/GLOBULIN RATIO 1.9 1.0-2.5 BILIRUBIN, TOTAL 0.2 0.2-1.2 ALKALINE PHOSPHATASE 63 33-115 AST 13 10-30 ALT 6 6-29 eGFR NON-AFR. EQUATORIAL GUINEAN 109 > OR = 60 eGFR 127 > OR = 60 CARBON DIOXIDE 29 20-32 GLOBULIN 2.2 1.9-3.7 BUN/CREATININE RATIO NOT APPLICABLE 6-22 SURESWAB(R) TRICHOMONAS VAGINALIS 2019-03-09 RNA, QL, TMA SURESWAB(R) TRICHOMONAS VAGINALIS Detected Not Detected RNA, QL, TMA RPR DIAGNOSIS WITH REFLEX TITER AND 2019-03-09 CONFIRMATORY TESTING RPR (DX) W/REFL TITER AND NON-REACTIVE NON-RE ACTIVE CONFIRMATORY TESTING TSH WITH REFLEX 2019-03-09 TSH W/REFLEX TO FT4 1.36 HEPATITIS B SURFACE ANTIGEN WITH 2019-03-09 REFLEX CONFIRMATION HEPATITIS B SURFACE ANTIGEN NON-REACTIVE NON- REACTIVE CBC WITH DIFF 2019-03-09 HEMOGLOBIN 13.1 11.7-15.5 HEMATOCRIT 39.4 35.0-45.0 MCH 31.6 27.0-33.0 MCHC 33.2 32.0-36.0 RDW 12.2 11.0-15.0 NEUTROPHILS 70.7 ABSOLUTE NEUTROPHILS 5939 9392-1108 LYMPHOCYTES 21.2 ABSOLUTE LYMPHOCYTES [phone] MONOCYTES 4.5 ABSOLUTE MONOCYTES 378 200-950 EOSINOPHILS 3.0 ABSOLUTE EOSINOPHILS 252 15-500 BASOPHILS 0.6 ABSOLUTE BASOPHILS 50 0-200 MPV 10.8 7.5-12.5 WHITE BLOOD CELL COUNT 8.4 3.8-10.8 RED BLOOD CELL COUNT 4.14 3.80-5.10 MCV 95.2 80.0-100.0 PLATELET COUNT 303 140-400 VITAMIN B12 AND FOLATE SERUM PANEL 2019-03-09 FOLATE, SERUM 4.3 VITAMIN B12 [phone] IRON AND TOTAL IRON BINDING CAPACITY 2019-03-09 % SAT IRON, TOTAL 52 40-190 IRON BINDING CAPACITY 280 250-450 % SATURATION 19 16-45 LITHIUM 2019-03-09 LITHIUM 0.7 0.6-1.2 HIV 1/2 AG/AB FOURTH GENERATION WITH 2019-03-09 REFLEXES SCREEN HIV AG/AB, 4TH GEN NON-REACTIVE NON-REACTIVE VITAMIN D 25 OH TOTAL IA 2019-03-09 VITAMIN D,25-OH,TOTAL,IA 23 30-100 HEPATITIS C ANTIBODY /WITH REFLEX TO 2019-03-09 HCV RNA QUANTITATIVE REAL TIME PCR HEPATITIS C ANTIBODY NON-REACTIVE NON-REACTIV E SIGNAL TO CUT-OFF 0.01 <1.00 BACTERIAL VAGINOSIS/VAGINITIS PANEL 2019-03-09 AFFIRM TRICHOMONAS: DETECTED NOT DETECTED GARDNERELLA: DETECTED NOT DETECTED LINDSEY: NOT DETECTED NOT DETECTED CHLAMYDIA/N.GONORRHOEAE AND TRICH 2019-03-09 PAP OR SWAB CHLAMYDIA TRACHOMATIS RNA, TMA, Not Detected Not Detected UROGENITAL NEISSERIA GONORRHOEAE RNA, TMA, Not Detected Not Detected UROGENITAL TRICHOMONAS VAGINALIS, QL TMA, PAP TNP VIAL MRI Brain 2019-04-04 Results: CMP 2018-08-20 GLUCOSE 98 65-99 UREA NITROGEN (BUN) 10 7-25 CREATININE 0.72 0.50-1.10 SODIUM 137 135-146 POTASSIUM 3.7 3.5-5.3 CHLORIDE 102 98-110 CALCIUM 10.2 8.6-10.2 PROTEIN, TOTAL 7.2 6.1-8.1 ALBUMIN 5.0 3.6-5.1 GLOBULIN 2.2 1.9-3.7 ALBUMIN/GLOBULIN RATIO 2.3 1.0-2.5 BILIRUBIN, TOTAL 0.4 0.2-1.2 ALKALINE PHOSPHATASE 76 33-115 AST 14 10-30 ALT 8 6-29 eGFR NON-AFR. EQUATORIAL GUINEAN 110 > OR = 60 eGFR 128 > OR = 60 CARBON DIOXIDE 24 20-32 GLOBULIN 2.2 1.9-3.7 BUN/CREATININE RATIO NOT APPLICABLE 6-22 CHLAMYDIA AND N GONORRHOEAE SWAB OR 2018-08-20 URINE CHLAMYDIA TRACHOMATIS RNA, TMA, NOT DETECTED NOT DETECTED UROGENITAL NEISSERIA GONORRHOEAE RNA, TMA, NOT DETECTED NOT DETECTED UROGENITAL COMMENT URINALYSIS COMPLETE WITH REFLEX TO 2018-08-20 CULTURE COLOR YELLOW YELLOW APPEARANCE TURBID CLEAR BILIRUBIN NEGATIVE NEGATIVE KETONES NEGATIVE NEGATIVE SPECIFIC GRAVITY 1.010 1.001-1.035 OCCULT BLOOD NEGATIVE NEGATIVE PH 8.0 5.0-8.0 PROTEIN NEGATIVE NEGATIVE RBC NONE SEEN < OR = 2 SQUAMOUS EPITHELIAL CELLS NONE SEEN < OR = 5 HYALINE CAST NONE SEEN NONE SEEN GLUCOSE NEGATIVE NEGATIVE REFLEXIVE URINE CULTURE NO CULTURE INDICATED NITRITE NEGATIVE NEGATIVE LEUKOCYTE ESTERASE NEGATIVE NEGATIVE WBC NONE SEEN < OR = 5 BACTERIA MODERATE NONE SEEN RPR DIAGNOSIS WITH REFLEX TITER AND 2018-08-20 CONFIRMATORY TESTING RPR (DX) W/REFL TITER AND NON-REACTIVE NON-RE ACTIVE CONFIRMATORY TESTING TSH WITH REFLEX 2018-08-20 TSH W/REFLEX TO FT4 2.28 FOLATE SERUM 2018-08-20 FOLATE, SERUM 8.1 HGA1C SEND OUT 2018-08-20 HEMOGLOBIN A1c 4.9 <5.7 IRON TOTAL IRON BINDING CAPACITY AND 2018-08-20 FERRITIN PANEL IRON, TOTAL 61 40-190 IRON BINDING CAPACITY 297 250-450 % SATURATION 21 11-50 FERRITIN 45 10-154 CBC WITH DIFF 2018-08-20 HEMOGLOBIN 12.8 11.7-15.5 HEMATOCRIT 37.5 35.0-45.0 MCH 31.9 27.0-33.0 MCHC 34.1 32.0-36.0 RDW 11.8 11.0-15.0 NEUTROPHILS 72.6 ABSOLUTE NEUTROPHILS 6389 [phone] LYMPHOCYTES 21.9 ABSOLUTE LYMPHOCYTES [phone] MONOCYTES 4.1 ABSOLUTE MONOCYTES 361 200-950 EOSINOPHILS 0.8 ABSOLUTE EOSINOPHILS 70 15-500 BASOPHILS 0.6 ABSOLUTE BASOPHILS 53 0-200 MPV 10.7 7.5-12.5 WHITE BLOOD CELL COUNT 8.8 3.8-10.8 RED BLOOD CELL COUNT 4.01 3.80-5.10 MCV 93.5 80.0-100.0 PLATELET COUNT 287 140-400 LIPID PANEL 2018-08-20 TRIGLYCERIDES 71 <150 CHOLESTEROL, TOTAL 165 <200 HDL CHOLESTEROL 48 >50 LDL-CHOLESTEROL 101 CHOL/HDLC RATIO 3.4 <5.0 NON HDL CHOLESTEROL 117 <130 CHOLESTEROL, TOTAL 165 <200 LITHIUM 2018-08-20 LITHIUM 0.6 0.6-1.2 VITAMIN B12 2018-08-20 VITAMIN B12 [phone] HIV 1/2 AG/AB FOURTH GENERATION WITH 2018-08-20 REFLEXES SCREEN HIV AG/AB, 4TH GEN NON-REACTIVE NON-REACTIVE VITAMIN D 25 OH TOTAL IA 2018-08-20 VITAMIN D,25-OH,TOTAL,IA 32 30-100 HEPATITIS C ANTIBODY /WITH REFLEX TO 2018-08-20 HCV RNA QUANTITATIVE REAL TIME PCR HEPATITIS C ANTIBODY NON-REACTIVE NON-REACTIV E SIGNAL TO CUT-OFF 0.01 <1.00 IRON TOTAL IRON BINDING CAPACITY AND 2017-12-29 FERRITIN PANEL IRON, TOTAL 22 40-190 IRON BINDING CAPACITY 389 250-450 % SATURATION 6 11-50 FERRITIN 6 10-154 CBC WITH DIFF 2017-12-29 HEMOGLOBIN 11.2 11.7-15.5 HEMATOCRIT 36.8 35.0-45.0 MCH 25.6 27.0-33.0 MCHC 30.5 32.0-36.0 RDW 18.5 11.0-15.0 NEUTROPHILS 63.0 ABSOLUTE NEUTROPHILS 4536 [phone] LYMPHOCYTES 29.7 ABSOLUTE LYMPHOCYTES [phone] MONOCYTES 4.9 ABSOLUTE MONOCYTES 353 200-950 EOSINOPHILS 2.1 ABSOLUTE EOSINOPHILS 151 15-500 BASOPHILS 0.3 ABSOLUTE BASOPHILS 22 0-200 MPV 8.7 7.5-12.5 WHITE BLOOD CELL COUNT 7.2 3.8-10.8 RED BLOOD CELL COUNT 4.39 3.80-5.10 MCV 83.7 80.0-100.0 PLATELET COUNT 320 140-400 URINE DIP IH 2017-07-14 Microscopic Examination Urine-Color yellow Appearance cloudy Specific [place] 1.015 pH 7.5 Glucose neg Protein neg Occult Blood neg Bilirubin neg Urobilinogen,Semi-Qn 0.2 Nitrite, Urine neg Ketones neg Leukocyte esterase neg HCG Urinalysis Gross Exam URINE DIP IH 2017-07-01 Microscopic Examination Urine-Color yellow Appearance cloudy Specific [place] 1.005 pH 8 Glucose neg Protein neg Occult Blood ++ Bilirubin neg Urobilinogen,Semi-Qn 0.2 Nitrite, Urine neg Ketones neg Leukocyte esterase trace HCG Urinalysis Gross Exam CMP 2017-07-01 GLUCOSE 80 65-99 UREA NITROGEN (BUN) 12 7-25 CREATININE 0.73 0.50-1.10 SODIUM 137 135-146 POTASSIUM 4.0 3.5-5.3 CHLORIDE 108 98-110 CALCIUM 9.7 8.6-10.2 PROTEIN, TOTAL 6.8 6.1-8.1 ALBUMIN 4.5 3.6-5.1 GLOBULIN 2.3 1.9-3.7 ALBUMIN/GLOBULIN RATIO 2.0 1.0-2.5 BILIRUBIN, TOTAL 0.3 0.2-1.2 ALKALINE PHOSPHATASE 64 33-115 AST 14 10-30 ALT 7 6-29 eGFR NON-AFR. EQUATORIAL GUINEAN 109 > OR = 60 eGFR 126 > OR = 60 CARBON DIOXIDE 26 20-31 GLOBULIN 2.3 1.9-3.7 BUN/CREATININE RATIO NOT APPLICABLE 6-22 TSH WITH REFLEX 2017-07-01 TSH W/REFLEX TO FT4 1.87 HEPATITIS A ANTIBODY TOTAL WITH 2017-07-01 REFLEX TO IGM HEPATITIS A AB, TOTAL W/REFL IGM NON-REACTIVE NON-REACTIVE HEPATITIS B CORE ANTIBODY TOTAL WITH 2017-07-01 REFLEX TO IGM HEPATITIS B CORE AB TOTAL NON-REACTIVE NON-RE ACTIVE URINE CULTURE ROUTINE 2017-07-01 CULTURE, URINE, ROUTINE SEE NOTE HEPATITIS B SURFACE ANTIGEN WITH 2017-07-01 REFLEX CONFIRMATION HEPATITIS B SURFACE ANTIGEN NON-REACTIVE NON- REACTIVE CBC WITH DIFF 2017-07-01 HEMOGLOBIN 12.4 11.7-15.5 HEMATOCRIT 37.0 35.0-45.0 MCH 30.4 27.0-33.0 MCHC 33.5 32.0-36.0 RDW 15.0 11.0-15.0 NEUTROPHILS 67.7 ABSOLUTE NEUTROPHILS 5890 [phone] LYMPHOCYTES 25.8 ABSOLUTE LYMPHOCYTES [phone] MONOCYTES 4.5 ABSOLUTE MONOCYTES 392 200-950 EOSINOPHILS 1.3 ABSOLUTE EOSINOPHILS 113 15-500 BASOPHILS 0.7 ABSOLUTE BASOPHILS 61 0-200 MPV 8.9 7.5-12.5 WHITE BLOOD CELL COUNT 8.7 3.8-10.8 RED BLOOD CELL COUNT 4.08 3.80-5.10 MCV 90.9 80.0-100.0 PLATELET COUNT 316 140-400 HIV 1/2 AG/AB FOURTH GENERATION WITH 2017-07-01 REFLEXES SCREEN HIV AG/AB, 4TH GEN NON-REACTIVE NON-REACTIVE VITAMIN D 25 OH TOTAL IA 2017-07-01 VITAMIN D,25-OH,TOTAL,IA 33 30-100 HEPATITIS C ANTIBODY /WITH REFLEX TO 2017-07-01 HCV RNA QUANTITATIVE REAL TIME PCR HEPATITIS C ANTIBODY NON-REACTIVE NON-REACTIV E SIGNAL TO CUT-OFF 0.01 <1.00 Ultrasound Right Upper Quadrant 2017-07-06 HEMOGLOBIN IH 2016-11-11 HEMOGLOBIN normal TISSUE PATHOLOGY 2 SPECIMENS 2016-11-07 A SOURCE [facility] B SOURCE 12 o'clock A DIAGNOSIS B DIAGNOSIS B COMMENT A GROSS DESCRIPTION B GROSS DESCRIPTION TISSUE PATHOLOGY 1 TO 4 SPECIMENS 2016-11-07 CLINICAL INFORMATION PATHOLOGIST TEST AUTHORIZATION 2016-10-14 TEST NAME: HPV CLIENT CONTACT: [facility] TEST CODE: [id number] REPORT ALWAYS MESSAGE SIGNATURE COMMENT THINPREP PAP RFX HR HPV DNA AND C 2016-10-14 TRACHOMATIS AND N GONORRHOEAE CLINICAL INFORMATION: None given LMP: NONE GIVEN PREV. PAP: NONE GIVEN PREV. BX: NONE GIVEN SOURCE: None given STATEMENT OF ADEQUACY: INTERPRETATION/RESULT: CRATE LINER: CHLAMYDIA TRACHOMATIS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
[2022-04-18 16:22] LABS: Bilirubin Negative (Negative); Blood Negative (Negative); Clarity Sl Cloudy (Clear); Glucose Negative (Negative); Ketones Negative (Negative); Leukocyte Esterase Small (Negative); Nitrite Negative (Negative); Specific Gravity >= 1.030 (1.005-1.025)
[2022-04-18 16:28] LABS: Bacteria Moderate HPF (Negative); C & S Indicated? No/Sq. Contamination; Casts Negative LPF (Negative); Crystals Negative HPF (Negative); Epithelial Cells Moderate HPF (Negative); Mucus Moderate (Negative); RBC 0-2 HPF (0-2)
== END 2022-04-18 15:32 | disposition home or self-care (01) ==
LOC: LBN 15:31
PROVIDERS: PCP Family Medicine; Visit Provider Family Medicine
DX: R30.0 Dysuria (principal)
CPT/HCPCS: 81003; 81015

== ENCOUNTER 2022-09-18 18:35 | Emergency (ER) | payer MEDICAID, SELFPAY ==
[2022-09-18 18:38] VITALS: BP 122/81; PULSE 80; RESP 14; TEMP 36.8; O2SAT 100
--- NOTE | 2022-09-18 18:57 | ED.GENADUL_ITS ---
Discharge Plan Disposition Patient Disposition: Home Condition: Improving Discharge Details Clinical Impression: Torticollis Primary Care Provider: Ayla Farrell ED Provider: Jama Dolan Home Meds and New Rx's Prescriptions: New cyclobenzaprine 5 mg tablet 5 mg PO QHS PRN (Reason: muscle spasm) Qty: 14 0RF lidocaine [Lidoderm] 5 % adhesive patch,medicated 1 patch topical DAILY Qty: 15 0RF Rx Instructions: leave on most painful area for up to 12 hrs No Action clonazepam 1 mg tablet 1 mg PO TID loratadine 10 mg tablet 10 mg PO DAILY fluticasone propionate 50 mcg/actuation spray,suspension 1 spray intranasal DAILY Rx Instructions: administer into each nostril gabapentin 600 mg tablet 600 mg PO TID loperamide 2 mg capsule 2 mg PO Q6H PRN cyclobenzaprine 10 mg tablet 10 mg PO TID bupropion HCl 150 mg tablet extended release 24 hr 150 mg PO BID Patient Comments: TAKE ONE TABLET BY MOUTH TWICE A DAY BEFORE BREAKFAST AND LUNCH montelukast [Singulair] 10 MG tablet 10 mg PO HS sertraline 100 MG tablet 200 mg PO DAILY Qty: 14 0RF lithium carbonate 450 mg tablet extended release 900 mg PO BID ferrous sulfate [iron] 325 MG tablet 325 mg PO DAILY dextroamphetamine-amphetamine [Adderall] 20 mg Tablet 20 mg PO BID diclofenac potassium 50 mg tablet 50 mg PO TID PRN (Reason: pain) Qty: 15 0RF ondansetron 4 mg tablet,disintegrating 4 mg PO Q6H PRN (Reason: nausea and vomiting) Qty: 10 0RF tamsulosin 0.4 mg capsule 0.4 mg PO QHS Qty: 14 0RF Discharge Instructions Instructions: Spasmodic Torticollis (ED) Additional Instructions: Please take medications as prescribed. Please return to the emergency department for any worsening symptoms. Medical Decision Making 37-year-old female presents with atraumatic right-sided neck pain and headache over the past several days, occipital headache, no photophobia or phonophobia. Afebrile nontoxic nonmeningeal, flexion extension and neck intact pain when attempting to rotate to the right, no midline spinal tenderness however patient does have tenderness of her right trapezius neurologically intact no cranial nerve deficits or focal deficits peripherally, patient is ambulatory without ataxia. Likely torticollis versus tension type headache lower suspicion for migraine, no evidence of meningitis or CVA. Very low suspicion for carotid artery dissection or vertebral artery dissection or occlusion given history and physical. No evidence of infection of head or neck. Will trial anti- inflammatory analgesics likely home with care instructions and return precautions 19: 48 patient resting comfortably range of motion greatly improved. Will provide cyclobenzaprine and Lidoderm patch for home. Home care instructions and return precautions given HPI General Date/Time Provider Initiated Documentation: 09/18/22 18:37 . HPI Narrative: 37-year-old female presents with right-sided neck pain over the past several days associated with occipital headache gradual in onset no nausea vomiting photophobia or phonophobia. Patient does have occasional migraines. Pain radiates from neck and shoulder. Related Data Home Medications Medication Instructions Recorded Confirmed montelukast 10 mg tablet 10 mg PO HS 12/02/16 11/14/21 (Singulair) sertraline 100 mg tablet 200 mg PO DAILY ##14 12/02/16 11/14/21 ferrous sulfate 325 mg (65 mg 325 mg PO DAILY 01/05/18 11/14/21 iron) tablet (iron) dextroamphetamine-amphetamine 20 20 mg PO BID 04/01/18 11/14/21 mg tablet (Adderall) clonazepam 1 mg tablet 1 mg PO TID 04/16/20 11/14/21 fluticasone propionate 50 1 spray intranasal DAILY 04/16/20 11/14/21 mcg/actuation nasal spray,suspension loratadine 10 mg tablet 10 mg PO DAILY 04/16/20 11/14/21 diclofenac potassium 50 mg tablet 50 mg PO TID PRN pain #15 tabs 11/12/21 11/14/21 ondansetron 4 mg disintegrating 4 mg PO Q6H PRN nausea and 11/12/21 11/14/21 tablet vomiting #10 tabs tamsulosin 0.4 mg capsule 0.4 mg PO QHS #14 caps 11/12/21 11/14/21 bupropion HCl 150 mg 24 hr tablet, 150 mg PO BID 11/14/21 11/14/21 extended release cyclobenzaprine 10 mg tablet 10 mg PO TID 11/14/21 11/14/21 gabapentin 600 mg tablet 600 mg PO TID 11/14/21 11/14/21 lithium carbonate 450 mg 900 mg PO BID 11/14/21 11/14/21 tablet,extended release loperamide 2 mg capsule 2 mg PO Q6H PRN 11/14/21 11/14/21 cyclobenzaprine 5 mg tablet 5 mg PO QHS PRN muscle spasm #14 09/18/22 tabs lidocaine 5 % topical patch 1 patch topical DAILY #15 ea 09/18/22 (Lidoderm) Previous Rx's Medication Instructions Recorded sertraline 100 mg tablet 200 mg PO DAILY ##14 12/02/16 diclofenac potassium 50 mg tablet 50 mg PO TID PRN pain #15 tabs 11/12/21 ondansetron 4 mg disintegrating 4 mg PO Q6H PRN nausea and 11/12/21 tablet vomiting #10 tabs tamsulosin 0.4 mg capsule 0.4 mg PO QHS #14 caps 11/12/21 cyclobenzaprine 5 mg tablet 5 mg PO QHS PRN muscle spasm #14 09/18/22 tabs lidocaine 5 % topical patch 1 patch topical DAILY #15 ea 09/18/22 (Lidoderm) Allergies Allergy/AdvReac Type Severity Reaction Status Date / Time valacyclovir [From Valtrex] Allergy Severe Anaphylaxsi Unverified 11/14/21 10:26 s General Stated Complaint: Nk/Back Pain PEREZ: 3 Review of Systems Narrative: Review of Systems Constitutional: negative Eyes: negative ENT: negative Cardiovascular: negative Respiratory: negative Gastrointestinal: negative : negative Musculoskeletal: Neck pain Skin: negative Neurologic: Headache Psych: negative PFSH All Active Problems (Updated 09/18/22 @ 19:50 by Jama Dolan MD) Torticollis (Acute) Syncope and collapse (Acute) Medical History ADHD Asthma Bipolar 1 disorder, mixed GERD (gastroesophageal reflux disease) Hx of pulmonary embolus during Surgical History Appendectomy 01/2005 section (07/27/12) M. Hysterectomy, Laproscopic (10/07/17) with bilateral salpingectomy and ovarian conservation Tonsillectomy and adenoidectomy 2004 Tooth extraction 2001 Family History Mother Heart disease Mental disorder Social History Smoking/Tobacco Use Status: Former Tobacco Use Smoking risk assessment performed?: Yes Alcohol Intake: never Drug use: Daily Substance use type: marijuana Do you feel safe at home: Yes Do you feel safe in your relationship?: Yes Exam Narrative Exam Narrative: Physical Examination General: alert, awake, cooperative, mildly uncomfortable HEENT: normocephalic, atraumatic; PERRL, EOM intact, conjunctiva normal; no nasal discharge; moist mucous membranes, oral and pharyngeal mucosa normal, tolerating secretions Neck: supple, trachea midline; tenderness over right trapezius into shoulder; able to flex and extend neck however turning her head to the right is uncomfortable Chest: normal to inspection Respiratory: normal respiratory effort, speaking in full sentences, clear to auscultation, no wheezing, rales or rhonchi Cardiac: regular rate, regular rhythm, S1S2 intact, no murmurs rubs or gallops GI: abdomen soft, non-tender, non-distended; no palpable mass or hepatosplenomegaly Skin: no lesions, rashes or trauma appreciated Neuro: AAOx3, normal speech, moving all extremities; out of 5 strength upper and lower extremities, normal speech cranial nerves intact, ambulatory without assistance no ataxia Extremities: No signs of trauma Psych: Appropriate mood and affect Course Vital Signs Vital signs: Vital Signs Temperature 36.8 C 09/18/22 18:38 Pulse 80 09/18/22 18:38 Respiratory Rate 14 09/18/22 18:38 Blood Pressure 122/81 09/18/22 18:38 Pulse Oximetry 100 09/18/22 18:38 Temperature 36.8 C 09/18/22 18:38 Temperature Source Skin 09/18/22 18:38 Pulse 80 09/18/22 18:38 Respiratory Rate 14 09/18/22 18:38 Blood Pressure 122/81 09/18/22 18:38 Blood Pressure Position Sitting 09/18/22 18:38 Pulse Oximetry 100 09/18/22 18:38 Oxygen Delivery Method Room Air 09/18/22 18:38 Oxygen Flow Rate 0 09/18/22 18:38 Pain Level 10 09/18/22 18:38
[2022-09-18] MEDS: LORazepam 1 MG TAB PO (18:59)
[2022-09-18] MEDS: Ketorolac 15 MG/ML VIAL IM (19:01)
[2022-09-18] MEDS: Lidocaine 5% Patch 1 PATCH TP (19:03)
[2022-09-18] MEDS: diphenhydrAMINE 25 MG CAP PO (19:56)
== END 2022-09-18 20:02 | disposition home or self-care (01) ==
PROVIDERS: Emergency Provider Emergency Medicine; PCP Family Medicine
DX: M43.6 Torticollis (principal); J45.909 Unspecified asthma, uncomplicated; Z79.899 Other long term (current) drug therapy
CPT/HCPCS: 96372; 99284; J1885

== ENCOUNTER 2022-11-06 05:52 | Emergency (ER) | payer MEDICAID, SELFPAY ==
[2022-11-06] VITALS (53 sets, daily range): BP systolic 92–153; BP diastolic 58–101; PULSE 58–76; RESP 0–29; TEMP 36.7–36.8; O2SAT 96–100
--- NOTE | 2022-11-06 05:45 | RT.EKG_ITS ---
APPROVED REPORT Exam: Resting ECG Reason for Exam: weakness Patient Location: E HR:72 bpm ECG Measurements Heart Rate 72 AXIS KS 137 P 77 QRSd 91 QRS 46 QT 416 T 52 QTc 456 Conclusion Sinus rhythm...normal P axis, V-rate 60- 99. Sinus. Normal axis. Normal intervals. No STEMI. I have reviewed and interpreted ECG and agree with software generated interpretation.
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
[2022-11-06 06:42] LABS: Abs Immature Grans 0.01 10^3/uL (0.0-0.06); Absolute Basophil Count 0.04 10^3/uL (0.0-0.2); Absolute Eosinophil Count 0.25 10^3/uL (0.0-0.7); Absolute Lymphocyte Count 2.32 10^3/uL (1.2-3.4); Absolute Monocyte Count 0.48 10^3/uL (0.1-0.8); Absolute Neutrophil Count 3.68 10^3/uL (1.2-6.7); Basophils % 0.6; Eosinophils % 3.7; HCT 36.2 % (36.0-46.0); HGB 11.7 g/dL (11.2-15.7); Immature Grans % 0.1; Lymphocytes % 34.2; MCHC 32.3 % (32.0-36.0); MCV 99 fL (80-95); MPV 9.8 fL (8.0-11.0); Monocytes % 7.1; Neutrophils % 54.3; Platelet Count 272 10^3/uL (130-400); RBC 3.66 10^6/uL (3.93-5.22); RDW 12.7 % (11.7-14.6); RDW-SD 46.3 fL; WBC 6.78 10^3/uL (4.4-10.8)
[2022-11-06] MEDS: Normal Saline 1,000 ML 1000 ML IV (06:47)
[2022-11-06] MEDS: ACETAMINOPHEN 1,000 MG/100 ML BTL 400 MG IVPB (06:48)
[2022-11-06 06:56] LABS: ETHANOL BLOOD < 3.0 mg/dL (<10)
[2022-11-06 06:58] LABS: ALT 14 U/L (14-59); AST 16 U/L (15-37); Alkaline Phosphatase 62 U/L (46-116); Anion Gap 4.1 mmol/L (3-11); BUN 12 mg/dL (7-18); Bilirubin, Total 0.2 mg/dL (0.2-1.0); CO2 28.9 mmol/L (21.0-32.0); Chloride 104 mmol/L (98-107); Estimated GFR 73.95 (mL/min/1.73m2); Glucose 85 mg/dL (74-106); Potassium 3.5 mmol/L (3.5-5.1); Sodium 137 mmol/L (136-145); Total Protein 6.9 g/dL (6.4-8.2)
[2022-11-06 07:07] LABS: *AMPHETAMINES SCREEN URINE Positive (Negative); *BARBITURATES SCREEN URINE Negative (Negative); *BENZODIAZEPINES SCREEN URINE Positive (Negative); Cannabinoids THC Positive (Negative); Cocaine Screen,Urine Negative (Negative); METHADONE URINE SCREEN Negative (Negative); OPIATES URINE SCREEN Negative (Negative)
[2022-11-06 07:08] LABS: Tricyclic Antidepressants Positive (Negative)
[2022-11-06 07:09] LABS: Bilirubin Negative (Negative); Blood Negative (Negative); Clarity Clear (Clear); Glucose Negative (Negative); Ketones Trace mg/dL (Negative); Leukocyte Esterase Negative (Negative); Nitrite Negative (Negative); Specific Gravity 1.025 (1.005-1.025); Urobilinogen 0.2 mg/dL (Up to 0.2); pH 6.5 (5-8)
[2022-11-06 07:16] LABS: Bacteria Few HPF (Negative); C & S Indicated? No; Casts Negative LPF (Negative); Crystals Negative HPF (Negative); Epithelial Cells Negative HPF (Negative); Mucus Moderate (Negative); Other Cells Negative (Negative); RBC Negative HPF (0-2); WBC Negative HPF (0-5)
[2022-11-06] MEDS: Lidocaine 1% Pres-Free 5 ML VIAL (07:23)
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
[2022-11-06 11:29] LABS: Lithium 1.6 mmol/l (0.6-1.2)
[2022-11-06 15:41] LABS: Lithium 1.3 mmol/l (0.6-1.2)
== END 2022-11-06 16:25 | disposition home or self-care (01) ==
PROVIDERS: Physician Assistant; Emergency Provider Student in an Organized Health Care Education/Training Program; PCP Family Medicine
DX: S01.312A Laceration without foreign body of left ear, initial encounter (principal); Y09 Assault by unspecified means; F31.81 Bipolar II disorder; F90.9 Attention-deficit hyperactivity disorder, unspecified type; R53.1 Weakness; W22.8XXA Striking against or struck by other objects, initial encounter; Z23 Encounter for immunization
CPT/HCPCS: 12011; 80053; 80307; 90471; 93005; 96365; 99285; 70450; 70486; 71046; 72125; 73564; 80178; 80320; 81003; 81015; 85025; 93010; 99284; J0131